=== PATIENT | female | born 1945 | race Caucasian/White ===

== ENCOUNTER → 2018-07-07 13:44 | Outpatient (CLI) | payer MEDICARE, SELFPAY ==
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
== END ==
PROVIDERS: Family Provider Family Medicine; PCP Family Medicine; Referring Provider Family Medicine; Visit Provider Family Medicine
DX: M79.641 Pain in right hand (principal)
CPT/HCPCS: 73130

== ENCOUNTER 2018-09-29 08:30 | Outpatient (RCR) | payer MEDICARE, SELFPAY ==
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
--- NOTE | 2018-09-29 08:58 | OTREVAL_ITS ---
August Mccray MD, It has been my pleasure to treat MARTA DEAN over the last 7 visits for Right hand pain. Please see the progress note below for an update on the occupational therapy plan of care! Subjective: pt states she has no improvement- pt indicates pain is more with doing dishes/ peeling fruits etc around the CMC region to right IF- Objective/Function: right girp 45#. left human services care specialist 40#. right lateral pinch 11#. left lateral pinch 12#. right tripod pinch 10#. left pinch tripod 10#. right wrist 70/60. left wrist 75/40- pt reports no improvement- but pt demo return of her right human services care specialist strength and a increase in tripod pinch- pt states she contines to have pain- pt demo with CMC arthritis- pain could be radiating from this area-rec'd pt return to for further evaluation. Plan Plan: return for further evaluation due to pts report of no change in her pain or ability Goals - Goals Goal:: PT will demo an increase in human services care specialist strength by 20# to increase independent with basic occupations of daily living to return pt to PLOF by D/C. Pt will demo an increase in lateral and tripod pinch by 2# to increase pts independent with opening baggies, containers at PLOF by D/C. Goal:: Pt will report pain no greater than 1/10 with use of affected hand with BADLs and IADLs by d/c. Goal:: Pt will demo understanding of work/lifting and carry ergonomics, joint protection to decrease stress on tendons to increase pts independent with ADLs, IADLS and work tasks by d/c. Goal:: Pt will report ind. With BADLS and IADLs with no compensation or pain by dc Anticipated Interventions Anticipated Interventions: Strengthening, Triggerpoint Release, Modalities, Joint Protection/Energy Conservation, Ergonomic Education Please do not hesitate to contact me at [phone] by phone or if you have questions or concerns regarding this new plan of care! Sincerely, Venecia Hackett, OTR/L, CHT
--- NOTE | 2018-10-10 08:55 | HP.OT.NRP ---
HP - Discharge Summary - Patient Information MARTA DEAN was seen in my office for initial evaluation on 09/08/18. The following Plan of Care was established for this patient: Initial Frequency: 2x /Week Initial Duration: 4 Weeks Plan: return for further evaluation due to pts report of no change in her pain or ability - Anticipated Interventions Anticipated Interventions: Strengthening, Triggerpoint Release, Modalities, Joint Protection/Energy Conservation, Ergonomic Education This patient was last seen in our office 09/29/18. Pertinent comments regarding their Occupational therapy will appear below: pt was seen for 7 visits for right hand pain. Tharapy utilized modalities, ed.on joint protection and ad. eq. pt cont. to have diffuse pain around right CMC. therapist advised pt to return to for possible injection. pt called and states injection did give some relief and wanted to cancel all apts. pt d/c per her request. At this point I will be discontinuing this patient from occupational therapy. I would be happy to see this patient again in the future if found appropriate by the physician. Thank you! Venecia Hackett, OTR/L, CHT
--- NOTE | 2018-10-21 10:11 | HP.OT.NRP ---
HP - Discharge Summary - Patient Information MARTA DEAN was seen in my office for initial evaluation on 09/08/18. The following Plan of Care was established for this patient: Plan: return for further evaluation due to pts report of no change in her pain or ability - Anticipated Interventions Anticipated Interventions: Strengthening, Triggerpoint Release, Modalities, Joint Protection/Energy Conservation, Ergonomic Education This patient was last seen in our office 09/29/18. Pertinent comments regarding their Occupational therapy will appear below: pt was seen for 7 visits for right hand pain. Tharapy utilized modalities, ed.on joint protection and ad. eq. pt cont. to have diffuse pain around right CMC. therapist advised pt to return to for possible injection. pt was told by to give injection a couple weeks to see if it helped. Due to lack of improvement by skilled therapy services pt d/c at this time. pt to return to if she continues to have difficulty for further eval. Pt agree to POC. At this point I will be discontinuing this patient from occupational therapy. I would be happy to see this patient again in the future if found appropriate by the physician. Thank you! Venecia Hackett, OTR/L, CHT
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
--- NOTE | 2018-10-25 09:34 | OTREVAL_ITS ---
August Mccray MD, It has been my pleasure to treat MARTA DEAN over the last 7 visits for Right hand pain. Please see the progress note below for an update on the occupational therapy plan of care! Subjective: pt states she has no improvement- pt indicates pain is more with doing dishes/ peeling fruits etc around the CMC region to right IF- Objective/Function: right girp 45#. left blister packing machine tender 40#. right lateral pinch 11#. left lateral pinch 12#. right tripod pinch 10#. left pinch tripod 10#. right wrist 70/60. left wrist 75/40- pt reports no improvement- but pt demo improvement of her right blister packing machine tender tripod pinch strength. pt states she contines to have pain around the CMC hand region -therapist has not been able to decrease pts pain with skilled therapy services at this time. Rec'd pt return to for further evaluation. Plan Plan: return for further evaluation due to pts report of no change in her pain or ability Goals - Goals Goal:: PT will demo an increase in blister packing machine tender strength by 20# to increase independent with basic occupations of daily living to return pt to OF by D/C. Pt will demo an increase in lateral and tripod pinch by 2# to increase pts independent with opening baggies, containers at PLOF by D/C. Goal:: Pt will report pain no greater than 1/10 with use of affected hand with BADLs and IADLs by d/c. Goal:: Pt will demo understanding of work/lifting and carry ergonomics, joint protection to decrease stress on tendons to increase pts independent with ADLs, IADLS and work tasks by d/c. Goal:: Pt will report ind. With BADLS and IADLs with no compensation or pain by dc Anticipated Interventions Anticipated Interventions: Strengthening, Triggerpoint Release, Modalities, J oint Protection/Energy Conservation, Ergonomic Education Please do not hesitate to contact me at [phone] by phone or if you have questions or concerns regarding this new plan of care! Sincerely, Venecia Hackett, OTR/L, CHT
== END 2018-09-29 19:00 | disposition home or self-care (01) ==
LOC: OT 08:30
PROVIDERS: Family Provider Family Medicine; PCP Family Medicine; Referring Provider Family Medicine; Visit Provider Family Medicine
DX: M79.641 Pain in right hand (principal)
CPT/HCPCS: 97035; 97110; 97140; 97166; 97168; 97760

== ENCOUNTER 2018-12-10 21:06 | Emergency (ER) | payer MEDICARE, SELFPAY ==
[2018-12-10 21:08] VITALS: BP 139/84; PULSE 101; RESP 18; TEMP 36.2; O2SAT 95; BMI 26.9
[2018-12-10 21:17] VITALS: BP 151/79; PULSE 90; RESP 16; O2SAT 94; O2SAT 97
--- NOTE | 2018-12-10 21:21 | EKG12_ITS ---
Test Reason : SOB Blood Pressure : / mmHG Vent. Rate : 080 BPM Atrial Rate : 080 BPM P-R Int : 166 ms QRS Dur : 074 ms QT Int : 378 ms P-R-T Axes : 050 -30 004 degrees QTc Int : 435 ms Normal sinus rhythm Left axis deviation Abnormal ECG Confirmed by HUYEN HUFF, MINA ([id number]), scientific editor ANTHONY ALVARADO ([id number] on 12/14/2018 9:00:44 AM Referred By: LAURA Confirmed By:MINA MATSON MD
--- NOTE | 2018-12-10 21:21 | RAD_ITS ---
STUDY: X-RAY CHEST REASON FOR EXAM: Female, 73 years old. Shortness of breath. TECHNIQUE: Single frontal view of the chest. COMPARISON: None. FINDINGS: The lungs are clear and expanded. There is no demonstrated pleural abnormality. Normal size heart. Normal mediastinum and florencia. Normal visualized pulmonary arteries. There is atherosclerotic calcification of the aortic arch with tortuosity. Normal visualized thoracic spine. Normal visualized ribs, clavicles, and shoulders. There is no demonstrated abnormality of the visualized soft tissue structures of the upper abdomen. RAD/Chest 1 View (Portable) IMPRESSION: No acute cardiopulmonary process. Electronically Signed: Leela Hernandez MD at 21:40 EDT Tel , Service support ,
[2018-12-10] MEDS: Ipratropium/Albuterol Sulfate 3 ML AMPUL.NEB INHALATION (21:32)
[2018-12-10 21:34] VITALS: PULSE 81; RESP 16
--- NOTE | 2018-12-10 21:47 | ED.DCSUM_ITS ---
- ER Visit Summary Date of Service: 12/10/18 Chief Complaint: [] Harsh cough wheezing for about a week History of Present Illness: The patient is a 73 F [] has had the symptoms for about a week of runny nose harsh cough postnasal drainage she has had increasing cough and wheezing today, she is been on Augmentin by her outpatient providers, for about 6 days has 4 more days to go she has no chest pain abdominal pain she has had no leg edema she has no history of CO PE or DVT today the harshness of the coughing and the wheezing intensified and she was brought in she is feeling better now Physical Examination: [] Vital signs are within normal range her pulse ox is 96% on room air she is afebrile blood pressure is 130/80 range General, no distress resting comfortably HEENT is generally unremarkable he does have rhinorrhea, he is complaining of a sense of constant postnasal drainage The neck is supple no adenopathy Cardiovascular, regular rate and rhythm Lungs, clear bilateral very minimal scattered wheezing Abdomen, soft nontender Extremities, no clubbing cyanosis or edema Neurologic, awake alert answering questions appropriately moving all 4 extremities Test Results: [] Emergency Department Course and Treatment: [] Major complaints the fact has been on antibiotics continues to have harsh coughing wheezing screening labs aerosols Afrin and will reevaluate asked x-ray Patient's lab studies are all generally unremarkable see those reports, chest x- ray is unremarkable she is been treated she is feeling better she was given 1 dose of Decadron orally, she will continue her antibiotics she will be given Proventil to use at home follow with her family doctors next few days return for change in symptoms she is comfortable with this plan Treatment Plan: [] Disposition: [] Home stable Impression: [] URI with harsh cough This note was generated with [employer] software. It may contain incorrect words, spelling, and punctuation that were not noted in review of the chart prior to signing ED Disposition - Plan for ED Patient: Referrals: August Mccray MD [Primary Care Provider] -
[2018-12-10 22:00] LABS: Absolute Lymphocyte Count 1.97 X10^3/ul (0.83-4.51); Absolute Neutrophil Count 2.9 X10^3/uL (2.0-7.7); Basophil# 0.03 X10^3/uL; Basophil% 0.5 % (0-1); Eosinophil# 0.29 X10^3/uL; Hematocrit 38.1 % (37-47); Hemoglobin 12.3 g/dl (12.0-15.0); Lymphocyte # 1.97 X10^3/ul (4.0); Lymphocyte % 34.2 % (19-41); Mean Corp Hgb Conc 32.3 g/gl (32-36); Mean Corpuscular Hgb 29.6 pg (27.0-32.0); Mean Corpuscular Volume 91.8 fL (81-99); Mean Platelet Vol. 9.9 fl (6.2-12.0); Monocyte# 0.52 X10^3/uL; Neutrophil # 2.94 X10^3/uL (2.7-7.7); Neutrophil % 51.1 % (47-70); POSITIVE COUNT NO; POSITIVE DIFFERENTIAL NO; POSITIVE MORPHOLOGY NO; Platelet Count 191 K/mm3 (150-450); RBC Distribution Width CV 13.1 % (11.6-14.6); RBC Distribution Width SD 43.8 fl (35.1-43.9); Red Blood Count 4.15 M/mm3 (4.2-5.4); White Blood Count 5.8 K/mm3 (4.4-11.0)
[2018-12-10 22:13] LABS: Anion Gap 4 (5-15); BUN 18 mg/dL (7-18); BUN/Creat Ratio 22.3 RATIO (10-20); Calcium,Total 8.5 mg/dL (8.5-10.1); Chloride 110 mmol/L (98-107); Creatinine, Serum 0.81 mg/dL (0.55-1.02); EST Glomerular Filtration Rate 74 mL/min (>60); Est Glom Filt Rate - Afr Amer 90 mL/min (>60); Estimated Creatinine Clearance 55.01 ml/min; Glucose 118 mg/dL (74-106); Potassium 3.7 mmol/L (3.5-5.1); Sodium Level 143 mmol/L (136-145)
[2018-12-10 22:27] LABS: BNP,B-Type NATRIURETIC PEPTIDE 13.8 pg/mL (0-100)
--- NOTE | 2018-12-10 22:38 | ED.DEP ---
ED Disposition - Plan for ED Patient: Instructions: ED Bronchitis Asthmatic, ED Reactive Airway Disease Prescriptions: Albuterol Inhaler [Ventolin Hfa] 1 - 2 puff INHALATION Q4H PRN PRN #1 inhaler PRN Reason: Wheezing Referrals: August Mccray MD [Primary Care Provider] -
--- NOTE | 2018-12-10 22:54 | ED.DEP ---
ED Disposition - Plan for ED Patient: Instructions: ED Reactive Airway Disease, ED Bronchitis Asthmatic Prescriptions: Albuterol Inhaler [Ventolin Hfa] 1 - 2 puff INHALATION Q4H PRN PRN #1 inhaler PRN Reason: Wheezing Referrals: August Mccray MD [Primary Care Provider] -
[2018-12-10 23:14] VITALS: BP 126/78; PULSE 85; RESP 16; O2SAT 93
[2018-12-10 23:15] VITALS: BP 126/78; PULSE 85; RESP 16; O2SAT 94
[2018-12-10] MEDS: Oxymetazoline 0.05% 1 SPRAY SPRAY.BTL 2 SPRAY NASAL (23:19)
== END 2018-12-10 23:21 | disposition home or self-care (01) ==
PROVIDERS: Emergency Provider Emergency Medicine; Family Provider Family Medicine; PCP Family Medicine
DX: J06.9 Acute upper respiratory infection, unspecified (principal); R06.2 Wheezing; Z79.899 Other long term (current) drug therapy
CPT/HCPCS: 71045; 80048; 83880; 84484; 85025; 93005; 94640; 99284; A4216

== ENCOUNTER → 2019-02-06 13:52 | Outpatient (CLI) | payer MEDICARE, SELFPAY ==
--- NOTE | 2019-02-06 13:55 | RAD_ITS ---
STUDY: X-RAY - ABDOMEN/PELVIS REASON FOR EXAM: Female, 73 years old. Right-sided abdominal pain extending to the right groin. TECHNIQUE: AP supine and upright views of the abdomen and pelvis. COMPARISON: None. FINDINGS: Elevation of the right hemidiaphragm. The lung bases are clear. There is a moderate amount of colonic fecal material. There is no demonstrated free abdominal air. There is a 5.5 mm rounded calcification at the level of the transverse processes of the L5 vertebra on the right side. A mid right ureteral calculus should be ruled out. There are calcified phleboliths in the pelvis. Normal visualized osseous structures. RAD/Abd Inc Decub and/or Erect IMPRESSION: Findings suggestive of a 5.5 mm calculus in the midportion of the right ureter overlying the transverse processes of the L5 vertebrae. Electronically Signed: Rickie Barksdale, at 14:34 EDT , Service support ,
== END ==
PROVIDERS: Family Provider Family Medicine; PCP Family Medicine; Referring Provider Nurse Practitioner Adult Health; Visit Provider Nurse Practitioner Adult Health
DX: R10.9 Unspecified abdominal pain (principal)
CPT/HCPCS: 74019

== ENCOUNTER → 2019-07-14 08:13 | Outpatient (CLI) | payer MEDICARE, SELFPAY ==
[2019-07-14 10:29] LABS: Vitamin D,25 Hydroxy 59.2 ng/mL (29.95-100.01)
[2019-07-14 10:42] LABS: ALB/GLOB Ratio 1.1 RATIO (0.9-2.4); AST(SGOT) 13 U/L (15-37); Alanine Aminotransfer ALT/SGPT 22 U/L (13-56); Albumin, Serum 3.5 g/dL (3.2-5.0); Alkaline Phosphatase 70 U/L (45-117); Anion Gap 5 (5-15); BUN 14 mg/dL (7-18); BUN/Creat Ratio 20.6 RATIO (10-20); Calcium,Total 8.8 mg/dL (8.5-10.1); Chloride 110 mmol/L (98-107); Cholesterol 148 mg/dL (200); Creatinine, Serum 0.68 mg/dL (0.55-1.02); EST Glomerular Filtration Rate 91 mL/min (>60); Est Glom Filt Rate - Afr Amer 110 mL/min (>60); Globulin 3.2 g/dL (2.2-4.2); Glucose 94 mg/dL (74-106); High Density Lipoprotein 47 mg/dL; Potassium 3.7 mmol/L (3.5-5.1); Protein, Total 6.7 g/dL (6.4-8.2); Sodium Level 142 mmol/L (136-145); Triglycerides 106 mg/dL; Very Low Density Lipoprotein 21 mg/dL (5-40)
== END ==
PROVIDERS: Family Provider Family Medicine; PCP Family Medicine; Referring Provider Family Medicine; Visit Provider Family Medicine
DX: Z00.00 Encounter for general adult medical examination without abnormal findings (principal); I10 Essential (primary) hypertension; E78.5 Hyperlipidemia, unspecified; M81.0 Age-related osteoporosis without current pathological fracture
CPT/HCPCS: 36415; 80053; 80061; 82306; 84443

== ENCOUNTER → 2019-08-08 08:22 | Outpatient (CLI) | payer MEDICARE, SELFPAY | PROVIDERS: Family Provider Family Medicine; PCP Family Medicine; Visit Provider Nurse Practitioner Adult Health | DX: R19.7 Diarrhea, unspecified (principal) | CPT/HCPCS: 87493 ==

== ENCOUNTER → 2021-01-13 09:13 | Outpatient (CLI) | payer MEDICARE, SELFPAY ==
[2021-01-13 11:14] LABS: ALB/GLOB Ratio 1.1 RATIO (0.9-2.4); AST(SGOT) 13 U/L (15-37); Alanine Aminotransfer ALT/SGPT 21 U/L (13-56); Albumin, Serum 3.6 g/dL (3.2-5.0); Alkaline Phosphatase 82 U/L (45-117); Anion Gap 4 (5-15); BUN 12 mg/dL (7-18); BUN/Creat Ratio 17.8 RATIO (10-20); Calcium,Total 9.6 mg/dL (8.5-10.1); Chloride 107 mmol/L (98-107); Cholesterol 185 mg/dL (200); Creatinine, Serum 0.67 mg/dL (0.55-1.02); EST Glomerular Filtration Rate 91 mL/min (>60); Est Glom Filt Rate - Afr Amer 110 mL/min (>60); Globulin 3.4 g/dL (2.2-4.2); Glucose 91 mg/dL (74-106); High Density Lipoprotein 55 mg/dL; Potassium 3.8 mmol/L (3.5-5.1); Sodium Level 140 mmol/L (136-145); Triglycerides 165 mg/dL; Very Low Density Lipoprotein 33 mg/dL (5-40)
== END ==
PROVIDERS: PCP Family Medicine; Visit Provider Family Medicine
DX: E78.5 Hyperlipidemia, unspecified (principal); E04.2 Nontoxic multinodular goiter
CPT/HCPCS: 36415; 80053; 80061; 84443

== ENCOUNTER → 2021-01-28 12:19 | Outpatient (CLI) | payer MEDICARE, SELFPAY ==
--- NOTE | 2021-01-28 12:22 | US_ITS ---
STUDY: THYROID ULTRASOUND REASON FOR EXAM: Female, 75 years old. GOITER TECHNIQUE: Ultrasound evaluation of the thyroid was performed with real-time and static reed-scale imaging. COMPARISON: Comparison is made with prior study dated 07/12/2017. FINDINGS: RIGHT LOBE: The right lobe of the thyroid gland measures 4 cm x 1.5 cm x 0.9 cm. There is a homogeneous echotexture. Once again, scattered hypoechoic nodules are seen throughout the mid pole of the right lobe. The largest measures 8 mm x 8 mm x 5 mm. This is essentially unchanged. LEFT LOBE: The left lobe of the thyroid gland measures 4.3 cm x 1.3 cm x 1.4 cm. There is a homogeneous echotexture. 2 subcentimeter hypoechoic nodules are seen. The largest measures 8 mm x 6 mm x 4 mm. This is in the lower pole. This is essentially unchanged. ISTHMUS: The isthmus measures 3 mm. The regional lymph nodes are normal. US/Thyroid IMPRESSION: Stable examination. Electronically Signed: Rickie Barksdale MD at 8:45 EDT , Service support ,
== END ==
PROVIDERS: PCP Family Medicine; Referring Provider Family Medicine; Visit Provider Family Medicine
DX: E04.2 Nontoxic multinodular goiter (principal)
CPT/HCPCS: 76536

== ENCOUNTER → 2022-01-13 | Outpatient (CLI) | payer MEDICARE, SELFPAY ==
[2022-01-13 10:28] LABS: Anion Gap 6 (5-15); BUN 16 mg/dL (7-18); BUN/Creat Ratio 24.5 RATIO (10-20); Calcium,Total 9.1 mg/dL (8.5-10.1); Chloride 108 mmol/L (98-107); Cholesterol 145 mg/dL (200); Creatinine, Serum 0.65 mg/dL (0.55-1.02); EST Glomerular Filtration Rate 94 mL/min (>60); Est Glom Filt Rate - Afr Amer 114 mL/min (>60); Glucose 102 mg/dL (74-106); High Density Lipoprotein 43 mg/dL; Potassium 3.8 mmol/L (3.5-5.1); Sodium Level 142 mmol/L (136-145); Triglycerides 148 mg/dL; Very Low Density Lipoprotein 30 mg/dL (5-40)
== END | disposition home or self-care (01) ==
LOC: MTLAB 07:10
PROVIDERS: PCP Family Medicine; Referring Provider Family Medicine; Visit Provider Family Medicine
DX: I10 Essential (primary) hypertension (principal)
CPT/HCPCS: 36415; 80048; 80061

== ENCOUNTER → 2022-07-03 | Outpatient (CLI) | payer MEDICARE, SELFPAY ==
--- NOTE | 2022-07-03 10:10 | RAD_ITS ---
STUDY: X-RAY - PELVIS AND BILATERAL HIPS REASON FOR EXAM: Female, 76 years old. HIP PAIN TECHNIQUE: AP view of the pelvis.? 2 views of the right hip, and 2 views of the left hip were obtained. COMPARISON: None. FINDINGS: There is a non-specific bowel gas pattern. Normal visualized soft tissue structures. There is diffuse demineralization of the osseous structures. There is narrowing with cortical sclerosis and osteophyte formation of the sacroiliac joint consistent with degenerative osteoarthritic changes. Normal bilateral superior and inferior pubic rami. Normal pubic symphysis. Normal bilateral ischial tuberosities. Normal visualized right femoral head. Normal right acetabulum. There is mild articular joint space narrowing of the right hip. Normal visualized left femoral head. Normal left acetabulum. There is mild articular joint space narrowing of the left hip. RAD/Hips B/L min 2 views w/ Pelvis IMPRESSION: Age consistent hip and SI joint arthrosis, no demonstrated fracture or suspicious osseous lesion Electronically Signed: Tim Ruiz MD at 12:38 EDT ,
[2022-07-03 12:54] LABS: Anion Gap 8 (5-15); BUN 14 mg/dL (7-18); BUN/Creat Ratio 19.3 RATIO (10-20); Chloride 104 mmol/L (98-107); Cholesterol 179 mg/dL (200); Creatinine, Serum 0.73 mg/dL (0.55-1.02); EST Glomerular Filtration Rate 83 mL/min (>60); Est Glom Filt Rate - Afr Amer 101 mL/min (>60); Glucose 106 mg/dL (74-106); High Density Lipoprotein 47 mg/dL; Potassium 3.9 mmol/L (3.5-5.1); Sodium Level 140 mmol/L (136-145); Triglycerides 173 mg/dL; Very Low Density Lipoprotein 35 mg/dL (5-40)
== END | disposition home or self-care (01) ==
PROVIDERS: PCP Family Medicine; Referring Provider Family Medicine; Visit Provider Family Medicine
DX: M25.551 Pain in right hip (principal); M25.552 Pain in left hip; I10 Essential (primary) hypertension
CPT/HCPCS: 36415; 73521; 80048; 80061

== ENCOUNTER 2022-08-28 20:00 | Emergency (ER) | payer MEDICARE, SELFPAY ==
[2022-08-28 20:02] VITALS: BP 130/89; PULSE 114; RESP 18; TEMP 36.7; O2SAT 95; BMI 25.7
[2022-08-28 21:06] LABS: Absolute Lymphocyte Count 0.45 X10^3/uL (0.83-4.51); Absolute Neutrophil Count 6.5 X10^3/uL (2.0-7.7); Basophil# 0.04 X10^3/uL; Basophil% 0.5 % (0-1); Eosinophil# 0.27 X10^3/uL; Eosinophils% 3.3 % (0-5); Hematocrit 50.8 % (37-47); Hemoglobin 17.1 g/dL (12.0-15.0); Lymphocyte # 0.45 X10^3/ul (0.83-4.51); Lymphocyte % 5.6 % (19-41); Mean Corp Hgb Conc 33.7 g/dL (32-36); Mean Corpuscular Hgb 30.6 pg (27.0-32.0); Mean Corpuscular Volume 90.9 fL (81-99); Mean Platelet Vol. 10.2 fl (6.2-12.0); Monocyte% 9.9 % (0-10); NRBC Flagged by Analyzer 0 % (0-5); Neutrophil # 6.49 X10^3/uL (2.7-7.7); Neutrophil % 80.6 % (47-70); POSITIVE DIFFERENTIAL YES; Platelet Count 253 K/mm3 (150-450); RBC Distribution Width CV 12.9 % (11.6-14.6); RBC Distribution Width SD 43.1 fl (35.1-43.9); Red Blood Count 5.59 M/mm3 (4.2-5.4); White Blood Count 8.1 K/mm3 (4.4-11.0)
[2022-08-28 21:08] LABS: Differential Indicated SCAN CRITERIA MET
[2022-08-28 21:25] LABS: Anion Gap 10 (5-15); BUN 55 mg/dL (7-18); BUN/Creat Ratio 32.2 RATIO (10-20); Calcium,Total 9.6 mg/dL (8.5-10.1); Chloride 102 mmol/L (98-107); Creatinine, Serum 1.71 mg/dL (0.55-1.02); EST Glomerular Filtration Rate 31 mL/min (>60); Est Glom Filt Rate - Afr Amer 37 mL/min (>60); Estimated Creatinine Clearance 24.92 ml/min; Glucose 136 mg/dL (74-106); Potassium 3.7 mmol/L (3.5-5.1); Sodium Level 135 mmol/L (136-145)
[2022-08-28 21:35] LABS: Differential Comment SCANNED
[2022-08-29 00:38] LABS: Magnesium 2.9 mg/dL (1.6-2.6)
[2022-08-29] MEDS: proCHLORPERazine 10 MG/2 ML Vial 5 MG IV (00:39)
[2022-08-29] MEDS: Diphenoxylate/Atrop 1 Tablet PO (00:39)
[2022-08-29] MEDS: 0.9% Normal Saline 1,000 ML 500 ML IV (00:50)
[2022-08-29 01:06] LABS: Color, Urine Yellow (Yellow); Glucose, Dipstick Normal (Normal); Ketone-Dipstick 50 mg/dl (Negative); Leukocyte Esterase-Dipstick 25 /ul (Negative); Nitrite-Dipstick Negative (Negative); Occult Blood-Urine 10 /ul (Negative); Protein-Dipstick 30 mg/dl (Negative); Specific Gravity, Urine 1.025 (1.002-1.030); Urine Clarity Sl. Cloudy (Clear); Urine Urobilinogen Normal (Normal)
[2022-08-29 01:12] LABS: Urine Bilirubin Dipstick 1 mg/dL (Negative)
[2022-08-29 01:17] LABS: Bacteria 2+ /hpf (None Seen); Hyaline Cast 25-50 SEEN /lpf (0-5); Red Blood Cells-Urine 0-5 SEEN /hpf (0-5); Squamous Epithelial Cells - UA 0-5 SEEN /hpf (5-10); White Blood Cells 5-10 SEEN /hpf (0-5)
[2022-08-29 01:18] LABS: Fine Granular Cast- Urine 0-5 SEEN /lpf (0-5); Mucous, Urine 1+ /hpf (<or=2+)
--- NOTE | 2022-08-29 02:26 | EDS_ITS ---
HPI History of Present Illness Chief Complaint: Nausea/Vomiting/Diarrhea Narrative Narrative: Patient is a 76-year-old female with history of hypertension hyperlipidemia and TIA. Patient and state that family in [place] was recently sick with the stomach bug. Patient and state that over the last 2 to 3 days she has had multiple episodes of vomiting and diarrhea and has been unable to keep food or fluid down. They have concerned that she is now becoming dehydrated secondary to the prolonged nature of her symptoms and therefore bring her in for evaluation [facility] Home Medications Aggrenox PO BID 12/10/18 [History Last Taken Unknown] Amoxicillin/Potassium Clav [Amox-Clav 875-125 Mg Tablet] 1 tab PO BID 12/10/18 [History Last Taken Unknown] Vitamin D DAILY 12/10/18 [History Last Taken Unknown] albuterol sulfate 90 mcg/actuation aerosol inhaler 1 - 2 puff inhalation Q4H PRN PRN Wheezing ##1 12/10/18 [Rx Last Taken Unknown] atorvastatin 10 mg tablet 10 mg PO QHS 12/10/18 [History Last Taken Unknown] folic acid 1 mg tablet 1 mg PO DAILY 12/10/18 [History Last Taken Unknown] hydrochlorothiazide 12.5 mg capsule 12.5 mg PO DAILY 12/10/18 [History Last Taken Unknown] metoprolol tartrate 25 mg tablet 12.5 mg PO BID 12/10/18 [History Last Taken Unknown] multivit with vqxzbdoc-ijzg-NJ-lutein 8 mg iron-400 mcg-300 mcg tablet (Centrum Silver Women) 1 ea PO DAILY 12/10/18 [History Last Taken Unknown] diphenoxylate-atropine 2.5 mg-0.025 mg tablet (Lomotil) 1 tab PO 4X/DAY PRN PRN diarrhea 7 days #28 tabs 08/29/22 [Rx Last Taken Unknown] Allergy/AdvReac Type Severity Reaction Status Date / Time lisinopril AdvReac Other Verified 12/10/18 21:26 risedronate sodium AdvReac Unknown Verified 12/10/18 21:26 [From Actonel] Social History Smoking Status: Never smoker ROS ROS ED Constitutional Constitutional ED: Denies chills or fever(s) ENT ENT ED: Denies sore throat Cardiovascular Cardiovascular: Denies chest pain Respiratory/Chest Respiratory/Chest: Denies cough or dyspnea Gastrointestinal Gastrointestinal: Reports diarrhea, nausea and vomiting; Denies abdominal pain Genitourinary Genitourinary ED: Denies dysuria Musculoskeletal Musculoskeletal: Reports myalgias Integumentary Denies rash Neurologic Neurologic: Reports weakness; Denies headache(s) Hematologic/Lymphatic Hematologic/Lymphatic: Denies easy bleeding or easy bruising EXAM Physical Exam Const Vital Signs: 08/28/22 20:02 08/29/22 02:35 Temperature 98.1 F Temperature Source Temporal Pulse Rate 114 H 65 Respiratory Rate 18 19 H Blood Pressure 130/89 H 118/71 Blood Pressure Mean 102 Pulse Ox 95 96 Oxygen Delivery Method Room Air Positive well nourished and well developed General Appearance ED: well developed HEENT Reports dry mucous membranes HEENT Narrative: Mucous membranes are dry and tacky without airway edema or compromise Mouth ED: Yes dry mucous membranes Mouth: dry mucous membranes Eyes PERRL and EOMs intact bilaterally General Eye ED: Negative for scleral icterus Neck supple Resp normal respiratory effort and clear to auscultation bilaterally Cardio regular rhythm Rate: tachycardic GI non-tender and non-distended GI Narrative: Abdomen is soft nontender nondistended with hyperactive bowel sounds no voluntary guarding or rigidity no pulsatile mass Auscultation: hyperactive bowel sounds Palpation: soft Extremity normal to inspection Neuro oriented x3 and CN's II-XII intact bilaterally Sensorium / Orientation: alert Psych mental status grossly normal Skin no rashes or lesions noted Skin Narrative: Skin turgor is increased General Skin Exam: Negative for jaundice MDM MDM MDM Narrative Medical decision making narrative: Patient presented to the ER with history and physical exam findings consistent with dehydration and viral gastroenteritis. Based on the prolonged nature of her symptoms there was concern for electrolyte abnormalities so basic blood work was obtained. Patient's kidney function is elevated with creatinine of 1.71 when chart review reveals her baseline to be approximately 0.75. Secondary to this she was given 2 L of fluid as well as IV Compazine and oral Lomotil. Patient had no bouts of vomiting while in the ER and she only had 1 bout of loose stool which she states was small in nature. Her vital signs normalized as well with hydration. Therefore at this time as patient is now tolerating oral secretions and no longer having vomiting or intractable diarrhea and she has been hydrated I do not feel we have to keep her in the hospital. Patient will continue oral hydration but if symptoms return or worsen she agrees to return to the ER for repeat evaluation. The plan of care was discussed with patient and and both are agreeable to it Lab Data Attestation: I reviewed the patient's lab results. Labs: Laboratory Results - last 24 hr 08/28/22 08/28/22 08/28/22 20:58 20:58 20:58 WBC 8.1 RBC 5.59 H Hgb 17.1 H Hct 50.8 H MCV 90.9 MCH 30.6 MCHC 33.7 RDW Std Deviation 43.1 RDW Coeff of Opal 12.9 Plt Count 253 MPV 10.2 Immature Gran % (Auto) 0.100 Neut % (Auto) 80.6 H Lymph % (Auto) 5.6 L [place] % (Auto) 9.9 Eos % (Auto) 3.3 Baso % (Auto) 0.5 Absolute Neuts (auto) 6.5 Absolute Lymphs (auto) 0.45 L Nucleated RBC % 0 Differential Comment SCANNED Sodium 135 L Potassium 3.7 Chloride 102 Carbon Dioxide 23.0 Anion Gap 10 BUN 55 H Creatinine 1.71 H Estim Creat Clear Calc 24.92 Est GFR (MDRD) Af Amer 37 L Est GFR (MDRD) Non-Af 31 L BUN/Creatinine Ratio 32.2 H Glucose 136 H Calcium 9.6 Magnesium 2.9 H Urine Color Urine Clarity Urine pH Ur Specific [place] Urine Protein Urine Glucose (UA) Urine Ketones Urine Occult Blood Urine Nitrite Urine Bilirubin Urine Urobilinogen Ur Leukocyte Esterase Urine RBC Urine WBC Ur Squamous Epith Cells Urine Bacteria Hyaline Casts Fine Granular Casts Urine Mucus 08/29/22 00:56 WBC RBC Hgb Hct MCV MCH MCHC RDW Std Deviation RDW Coeff of Opal Plt Count MPV Immature Gran % (Auto) Neut % (Auto) Lymph % (Auto) [place] % (Auto) Eos % (Auto) Baso % (Auto) Absolute Neuts (auto) Absolute Lymphs (auto) Nucleated RBC % Differential Comment Sodium Potassium Chloride Carbon Dioxide Anion Gap BUN Creatinine Estim Creat Clear Calc Est GFR (MDRD) Af Amer Est GFR (MDRD) Non-Af BUN/Creatinine Ratio Glucose Calcium Magnesium Urine Color Yellow Urine Clarity Sl. Cloudy Urine pH 5.0 Ur Specific [place] 1.025 Urine Protein 30 H Urine Glucose (UA) Normal Urine Ketones 50 H Urine Occult Blood 10 H Urine Nitrite Negative Urine Bilirubin 1 H Urine Urobilinogen Normal Ur Leukocyte Esterase 25 H Urine RBC 0-5 SEEN Urine WBC 5-10 SEEN Ur Squamous Epith Cells 0-5 SEEN Urine Bacteria 2+ Hyaline Casts 25-50 SEEN Fine Granular Casts 0-5 SEEN Urine Mucus 1+ Discharge Plan Triage Chief Complaint: Nausea/Vomiting/Diarrhea ED Provider: Celso Valencia Dx/Rx/DC Orders Clinical Impression: Nausea vomiting and diarrhea, Dehydration Instructions: Dehydration, ED Vomiting and Diarrhea ... Prescriptions: New diphenoxylate-atropine [Lomotil] 2.5-0.025 mg tablet 1 tab PO 4X/DAY PRN PRN (Reason: diarrhea) 7 Days Qty: 28 0RF No Action albuterol sulfate 1 INHALER inhaler 1 - 2 puff Inhalation Q4H PRN PRN (Reason: Wheezing) Qty: 1 0RF Aggrenox PO BID Amoxicillin/Potassium Clav [Amox-Clav 875-125 Mg Tablet] 1 EACH tablet 1 tab PO BID Label Comments: take 1 tablet by mouth twice a day for 10 days atorvastatin 10 MG tablet 10 mg PO QHS hydrochlorothiazide 12.5 MG capsule 12.5 mg PO DAILY Label Comments: TAKE ONE CAPSULE BY MOUTH EVERY DAY folic acid 1 MG tablet 1 mg PO DAILY Label Comments: TAKE ONE TABLET BY MOUTH DAILY metoprolol tartrate 25 MG tablet 12.5 mg PO BID Vitamin D DAILY yahjogja-mfe-mmak-FA-lutein [Centrum Silver Women] 1 EACH tablet 1 ea PO DAILY Primary Care Provider: August Mccray Referrals: August Mccray MD [Primary Care Provider] - Activity Restrictions/Additional Instructions: Please keep yourself well-hydrated continue with Zofran to control nausea and vomiting and use the Lomotil instead of the Imodium for better diarrhea control. Please talk to your family doctor about repeating blood work in roughly 1 week to ensure your kidney function is improving and if he have any further concerns return to the ER for repeat evaluation Disposition Disposition: Home, Self Care Discharge Date/Time: 08/29/22 02:43
[2022-08-29 02:35] VITALS: BP 118/71; PULSE 65; RESP 19; O2SAT 96
== END 2022-08-29 02:43 | disposition home or self-care (01) ==
PROVIDERS: Emergency Provider Emergency Medicine; PCP Family Medicine; Visit Provider Emergency Medicine
DX: R11.2 Nausea with vomiting, unspecified (principal); E86.0 Dehydration; R19.7 Diarrhea, unspecified; I10 Essential (primary) hypertension; E78.5 Hyperlipidemia, unspecified
CPT/HCPCS: 80048; 81001; 83735; 85025; 96361; 96374; 99284; J7030; J7050; A4216

== ENCOUNTER → 2022-09-02 | Outpatient (CLI) | payer MEDICARE, SELFPAY ==
[2022-09-02 18:58] LABS: Anion Gap 7 (5-15); BUN 20 mg/dL (7-18); BUN/Creat Ratio 24.6 RATIO (10-20); Calcium,Total 9.6 mg/dL (8.5-10.1); Chloride 102 mmol/L (98-107); Creatinine, Serum 0.81 mg/dL (0.55-1.02); EST Glomerular Filtration Rate 73 mL/min (>60); Est Glom Filt Rate - Afr Amer 88 mL/min (>60); Glucose 80 mg/dL (74-106); Potassium 3.8 mmol/L (3.5-5.1); Sodium Level 140 mmol/L (136-145)
== END | disposition home or self-care (01) ==
LOC: MFPLAB 15:36
PROVIDERS: PCP Family Medicine; Visit Provider Family Medicine
DX: N28.9 Disorder of kidney and ureter, unspecified (principal)
CPT/HCPCS: 36415; 80048

== ENCOUNTER → 2022-12-31 | Outpatient (CLI) | payer MEDICARE, SELFPAY ==
[2022-12-31 12:33] LABS: Anion Gap 6 (5-15); BUN 16 mg/dL (7-18); BUN/Creat Ratio 19.9 RATIO (10-20); Calcium,Total 9.3 mg/dL (8.5-10.1); Chloride 108 mmol/L (98-107); Cholesterol 158 mg/dL (200); EST Glomerular Filtration Rate 74 mL/min (>60); Est Glom Filt Rate - Afr Amer 89 mL/min (>60); Glucose 94 mg/dL (74-106); High Density Lipoprotein 48 mg/dL; Potassium 4.1 mmol/L (3.5-5.1); Sodium Level 142 mmol/L (136-145); Triglycerides 120 mg/dL; Very Low Density Lipoprotein 24 mg/dL (5-40)
== END | disposition home or self-care (01) ==
LOC: MFPLAB 09:41
PROVIDERS: PCP Family Medicine; Visit Provider Family Medicine
DX: I10 Essential (primary) hypertension (principal); E78.5 Hyperlipidemia, unspecified
CPT/HCPCS: 36415; 80048; 80061

== ENCOUNTER → 2023-02-25 | Outpatient (CLI) | payer MEDICARE, SELFPAY ==
--- NOTE | 2023-02-25 10:35 | RAD_ITS ---
STUDY: X-RAY - LEFT HAND REASON FOR EXAM: Female, 77 years old. PAIN, FALL WITH INJURY TECHNIQUE: 3 view(s) of the hand. COMPARISON: None. FINDINGS: Normal radiocarpal articulation. Normal distal radioulnar joint. There is diffuse demineralization of the carpal bones. Normal carpal articulations Normal carpometacarpal articulation of the thumb. Normal second through fifth carpometacarpal joints. Normal metacarpi. There is degenerative arthrosis of the metacarpophalangeal (MCP) joints. There is degenerative arthrosis of the interphalangeal joint of the thumb with articular joint space narrowing. Normal proximal and distal phalanges of the thumb. Normal metacarpophalangeal joints of the second through fifth fingers. There is diffuse articular joint space narrowing of the proximal and distal interphalangeal joints of the second through fifth fingers, but without erosive changes or periarticular soft tissue swelling. Normal phalanges of the second through fifth fingers. The soft tissue structures are unremarkable. RAD/Hand Min 3 Views IMPRESSION: No acute abnormality. No fracture or dislocation. Degenerative changes. Electronically Signed: Jesus Flores MD at 18:42 EDT ,
== END | disposition home or self-care (01) ==
LOC: MTRAD 10:32
PROVIDERS: PCP Family Medicine; Referring Provider Family Medicine; Visit Provider Family Medicine
DX: S69.92XA Unspecified injury of left wrist, hand and finger(s), initial encounter (principal); W19.XXXA Unspecified fall, initial encounter
CPT/HCPCS: 73130

== ENCOUNTER → 2023-07-02 | Outpatient (CLI) | payer MEDICARE, SELFPAY ==
[2023-07-02 10:45] LABS: ALB/GLOB Ratio 1.1 RATIO (0.9-2.4); AST(SGOT) 12 U/L (15-37); Alanine Aminotransfer ALT/SGPT 21 U/L (13-56); Albumin, Serum 3.5 g/dL (3.2-5.0); Alkaline Phosphatase 63 U/L (45-117); Anion Gap 4 (5-15); BUN 16 mg/dL (7-18); BUN/Creat Ratio 21.2 RATIO (10-20); Calcium,Total 9.1 mg/dL (8.5-10.1); Chloride 111 mmol/L (98-107); Cholesterol 154 mg/dL (200); Creatinine, Serum 0.76 mg/dL (0.55-1.02); EST Glomerular Filtration Rate 79 mL/min (>60); Est Glom Filt Rate - Afr Amer 96 mL/min (>60); Globulin 3.2 g/dL (2.2-4.2); Glucose 106 mg/dL (74-106); High Density Lipoprotein 45 mg/dL; Potassium 4.1 mmol/L (3.5-5.1); Protein, Total 6.7 g/dL (6.4-8.2); Sodium Level 143 mmol/L (136-145); Triglycerides 132 mg/dL; Very Low Density Lipoprotein 26 mg/dL (5-40)
== END | disposition home or self-care (01) ==
LOC: MFPLAB 08:45
PROVIDERS: PCP Family Medicine; Visit Provider Family Medicine
DX: E78.5 Hyperlipidemia, unspecified (principal)
CPT/HCPCS: 36415; 80053; 80061

== ENCOUNTER → 2024-01-03 | Outpatient (CLI) | payer MEDICARE, SELFPAY ==
--- NOTE | 2024-01-03 09:18 | RAD_ITS ---
INDICATION: HIP PAIN EXAMINATION/TECHNIQUE: X-RAY - XR Hips Bilateral with Pelvis when performed; Min 5 Views COMPARISON: No relevant prior comparison study available FINDINGS: PELVIC BONES: No displaced fracture, destructive or sclerotic lesions. Note that overlapping bowel shadows may however obscure fine detail. Sacroiliac joints are unremarkable. No widening of the pubic symphysis. HIPS: There is mild degenerative arthrosis of the hip joints bilaterally with mild joint space narrowing and marginal osteophyte formation. No displaced fracture. SOFT TISSUES: No soft tissue swelling or gas. RAD/Hips B/L min 2 views w/ Pelvis IMPRESSION: Mild degenerative arthrosis of the hip joints bilaterally. No evidence of displaced pelvic or hip fracture. Electronically Signed: Boyd Flores MD at 10:26 EDT ,
[2024-01-03 11:03] LABS: Anion Gap 3 (5-15); BUN 18 mg/dL (7-18); BUN/Creat Ratio 25.7 RATIO (10-20); Calcium,Total 9.3 mg/dL (8.5-10.1); Chloride 107 mmol/L (98-107); Cholesterol 133 mg/dL (200); EST Glomerular Filtration Rate 86 mL/min (>60); Est Glom Filt Rate - Afr Amer 105 mL/min (>60); Glucose 100 mg/dL (74-106); High Density Lipoprotein 41 mg/dL; Potassium 3.8 mmol/L (3.5-5.1); Sodium Level 140 mmol/L (136-145); Triglycerides 180 mg/dL; Very Low Density Lipoprotein 36 mg/dL (5-40)
== END | disposition home or self-care (01) ==
PROVIDERS: PCP Family Medicine; Referring Provider Family Medicine; Visit Provider Family Medicine
DX: I10 Essential (primary) hypertension (principal); M25.559 Pain in unspecified hip
CPT/HCPCS: 36415; 73521; 80048; 80061

== ENCOUNTER → 2024-08-08 | Outpatient (CLI) | payer MEDICARE, SELFPAY ==
[2024-08-08 10:43] LABS: PTHIN 37.4 pg/mL (18.4-80.1)
== END | disposition home or self-care (01) ==
LOC: MTLAB 08:45
PROVIDERS: PCP Family Medicine; Referring Provider Family Medicine; Visit Provider Family Medicine
DX: M81.0 Age-related osteoporosis without current pathological fracture (principal)
CPT/HCPCS: 36415; 83970

== ENCOUNTER 2024-09-18 09:02 | Observation (INO) | payer MEDICARE, SELFPAY ==
--- NOTE | 2024-08-22 09:01 | PAT.ANE_ITS ---
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 When Was Last Pacemaker Check QUESTION #4 FULL TEXT: You/Your Family Experience fever (hyperthermia) with Anesthesia Last Oral Intake Last Oral intake: Last Oral Intake NPO since Meds taken in AM with sips of water? Meds patient instructed to take am of surgery PONV PONV - electrician journeyman wireman: PONV - electrician journeyman wireman Female Yes 08/21/24 09:14 HX of Motion Sickness No 08/21/24 09:14 HX of N/V After Surgery No 08/21/24 09:14 Non-Smoker Yes 08/21/24 09:14 Duration of Surgery greater Yes 08/21/24 09:14 than 60 minutes Number of Risk Factors 3 08/21/24 09:14 PONV Score Moderate Risk 08/21/24 09:14 Height & Weight Height & Weight: Anesthesia: Height & Weight Height 5 ft 4 in 08/28/22 20:02 Respiratory Assessment Respiratory Assessment - electrician journeyman wireman: Respiratory Tract Infection Hx - electrician journeyman wireman Hx Respiratory Tract Infection No 08/21/24 09:14 STOP Sleep Apnea STOP Sleep Apnea - electrician journeyman wireman: STOP Sleep Apnea - electrician journeyman wireman Hx Hypertension Yes: CONTROLLED WITH MED 08/21/24 09:14 Hx Sleep Apnea No 08/21/24 09:14 CPAP BIPAP Do you snore loudly (louder No 08/21/24 09:14 than talking or can be heard Do you often feel tired/ No 08/21/24 09:14 fatigued/ sleepy during daytime? Has anyone observed you stop No 08/21/24 09:14 breathing during sleep? STOP Results Negative 08/21/24 09:14 QUESTION #5 FULL TEXT : Do you snore loudly (louder than talking or can be heard through closed doors)? Tobacco Use History Tobacco Use History - electrician journeyman wireman: Tobacco Use History - electrician journeyman wireman Tobacco Use Non-smoker 01/13/21 09:13 Smoking Status Never smoker 08/21/24 09:14 Hx Tobacco Use No 08/21/24 09:14 Years Smoking Packs Smoked per Day Smoking Cessation Date was within the last 15 years Hx Smoking Cessation Date Hx Smoking Cessation Counseling Hematologic Medial History Hematologic Hx - electrician journeyman wireman: Hematologic Medical Hx - cleaning porter Hx of Blood Transfusion No 08/21/24 09:14 Hx of Transfusion in last 3 No 08/21/24 09:14 Months Date of Last Transfusion (if within last 3 months) Ever experience any problems No 08/21/24 09:14 with transfusion(s)? Specify any problems Hx of Preganancy in last 3 No 08/21/24 09:14 Months Nurse Filling Out Transfusion DSCHRIBER 08/21/24 09:14 & Questions: Date: 08/21/24 08/21/24 09:14 Time: 09:16 08/21/24 09:14 Patient unable to answer at this time (ie. confused, unrespo /Reproduction History /Reproductive History - electrician journeyman wireman: /Reproductive Hx- electrician journeyman wireman Hx Now No 08/21/24 09:14 Gestational Age (in weeks): EDC: Hx Hx Para Hx Section SAB No 08/21/24 09:14 PFSH Medical History (Updated 08/21/24 @ 09:23 by Altagracia Sibley) Loss of hearing Wears glasses Post-menopausal Arthritis High cholesterol Non-smoker Cardiology follow-up encounter Hypertension TIA (transient ischemic attack) Stroke/cerebrovascular accident Home Medications ?Medication ?Instructions ?Recorded ?Last Taken ?Type hydrochlorothiazide 12.5 mg capsule 12.5 mg PO DAILY 12/10/18 Unknown History qqfvvdsg-sjna-vpcj 8 mg-folic 400 1 ea PO DAILY 12/10/18 Unknown History mcg-K 50 mcg-lutein 300 mcg tablet (Centrum Silver Women) Bifidobacterium infantis 4 mg 4 mg PO DAILY 08/21/24 Unknown History capsule (Align (B.infantis)) ascorbic acid (vitamin C) 500 mg 500 mg PO DAILY 08/21/24 Unknown History tablet (C-500) aspirin 25 mg-dipyridamole 200 mg 1 cap PO BID 08/21/24 Unknown History capsule,ext.release 12 hr multiphase atorvastatin 20 mg tablet 10 mg PO QHS 12/23/24 Unknown History calcium carbonate (Calcium 600) 600 mg PO BID 08/21/24 Unknown History cholecalciferol (vitamin D3) 25 25 mcg PO DAILY 08/21/24 Unknown History mcg (1,000 unit) capsule (Vitamin D3) coenzyme Q10 100 mg capsule 200 mg PO DAILY 08/21/24 Unknown History (CoQ-10) metoprolol succinate 25 mg 25 mg PO DAILY 08/21/24 Unknown History tablet,extended release 24 hr Allergy/AdvReac Type Severity Reaction Status Date / Time lisinopril AdvReac Other Verified 08/21/24 09:02 risedronate sodium (From AdvReac Unknown Verified 08/21/24 09:02 Actonel) Surgical History (Updated 08/21/24 @ 09:23 by Altagracia Sibley) Hx of colonoscopy History of tubal ligation Hx of surgical procedure Social History Smoking Status: Never smoker Audit: Pertinent Findings Pertinent Findings EKG Perinent findings: July 12, 2024. Normal sinus rhythm. Minimal voltage criteria for left ventricular hypertrophy. Consult pertinent findings: July 12, 2024 Dr. Ribeiro at [facility]. Apparently patient was already cleared for cardiac April 2024. And no new cardiac concerns at this time. 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 She is on Aggrenox and is tolerating it well. Hypertension is controlled with metoprolol and hydrochlorothiazide. Recommendation Anesthesia Recommendation Anesthesia recommendation: OPTIMIZED for anesthesia
[2024-08-25 08:44] LABS: Absolute Lymphocyte Count 1.25 X10^3/uL (0.83-4.51); Absolute Neutrophil Count 3.4 X10^3/uL (2.0-7.7); Basophil# 0.06 X10^3/uL; Basophil% 1.1 % (0-1); Eosinophil# 0.23 X10^3/uL; Eosinophils% 4.2 % (0-5); Hemoglobin 12.8 g/dL (12.0-15.0); Lymphocyte # 1.25 X10^3/ul (0.83-4.51); Mean Corpuscular Hgb 29.2 pg (27.0-32.0); Mean Corpuscular Volume 91.3 fL (81-99); Mean Platelet Vol. 9.7 fl (6.2-12.0); Monocyte# 0.49 X10^3/uL; NRBC Flagged by Analyzer 0 % (0-5); Neutrophil % 62.5 % (47-70); Platelet Count 242 K/mm3 (150-450); RBC Distribution Width CV 12.7 % (11.6-14.6); RBC Distribution Width SD 42.4 fl (35.1-43.9); Red Blood Count 4.38 M/mm3 (4.2-5.4); White Blood Count 5.4 K/mm3 (4.4-11.0)
[2024-08-25 09:42] LABS: Albumin, Serum 3.6 g/dL (3.2-5.0); Anion Gap 5 (5-15); BUN 14 mg/dL (7-18); BUN/Creat Ratio 20.9 RATIO (10-20); Calcium,Total 9.2 mg/dL (8.5-10.1); Chloride 108 mmol/L (98-107); Creatinine, Serum 0.67 mg/dL (0.55-1.02); EST Glomerular Filtration Rate 91 mL/min (>60); Est Glom Filt Rate - Afr Amer 110 mL/min (>60); Glucose 99 mg/dL (74-106); Magnesium 2.1 mg/dL (1.6-2.6); Sodium Level 141 mmol/L (136-145)
--- NOTE | 2024-09-10 20:02 | PCM.HP.BLA ---
History and Physical History and Physical Patient Name: Mona Cool : 1945From:? SEBASTIEN HAGAN PA-C DATE OF PRE-OPERATIVE EXAM: 09/08/2024 DATE OF SURGERY:? 09/18/2024 SCHEDULED PROCEDURE:? Direct interior left total hip arthroplasty HISTORY OF PRESENT ILLNESS: Preoperative history and physical exam was performed on September 08, 2024.? This is a 79-year-old female who has had ongoing pain since December 2023.? Patient's pain has been intermittent and sharp.? Pain is increased with going up and down stairs, walking and getting in and out of cars.? She has difficulty getting dressed putting on her socks and shoes.? She has stiffness and pain in the morning.? Patient has pain in the thigh and lateral hip.? She has history of impingement and bone spurring.? Patient has tried conservative measures including previous left hip intra-articular corticosteroid injection on March 16, 2024.? Patient had minimal improvement with the injection.? Patient denies past history of surgery on the left hip.? She is currently obtaining surgical clearance from the primary care provider Dr. Mccray and cook chief Dr. Ribeiro.? Patient has medical history pertinent for hypertension, previous stroke/TIA, hypercholesterolemia, and patent foramen ovale.? She denies past history of DVT or pulmonary embolism.? After failing conservative measures and discussing all treatment options with Dr. Moises Yi, the patient does wish to proceed with a direct anterior left total hip arthroplasty.? No recent chest pain, shortness of breath, fevers chills or recent infections. REVIEW OF SYSTEMS: Review Of Systems: Constitutional: Denies change in appetite, fever and weight change. Cardiovasular: Denies chest pain, heart murmur and irregular heartbeat. Respiratory: Denies cough, pneumonia, shortness of breath, tuberculosis and wheezing. Gastrointestinal: Denies constipation, diarrhea, heartburn, nausea, rectal itching, bloody stools and vomiting. Musculoskeletal: Reports pain and trouble walking, but denies leg swelling and weakness. Skin: Denies Raynaud's, history of shingles and tattoo. Neurological: Denies ambulatory dysfunction, dizziness, numbness/tingling and tremor. Psychiatric: Denies anxiety, insomnia and stress. Hematologic/Lymphatic: Denies anemia, bleeding/bruising tendency and past transfusion. Reviewed and updated. PAST MEDICAL HISTORY: Advance Care Plan: Other Directive, LIVING WILL Effective Date: 01/31/2024 Other Directive, POA Effective Date: 01/31/2024 Past Medical History: Medical Problems: Arthritis, Hard of Hearing Stroke - (1969) Osteopenia, High Blood Pressure, Hypercholesterolemia, Patent foramen ovale Accidents: None Surgical Hx: Left Hip Injection Under Fluoro - (03/16/2024) DR. YI AT [facility] Anesthesia Complications: None Assistive Devices: Glasses Reviewed and updated. SOCIAL HISTORY: Social History: Marital: .Occupation: Teacher.Work Status: Retired.Hand Dominance: Right-handed. Personal Habits:? Cigarette Use: Never Smoked Cigarettes.Smokeless Tobacco: Never Used Smokeless Tobacco.E-Cigarette Use: Never used.Alcohol: Denies use.Drug Use: Denies Use.Enjoy Exercising: Exercises 1-3 X/Week. Reviewed, no changes. VITALS: Ht: 64 Wt: 140lb Wt k.504 BMI: 24.0 BP: 118/80 Pulse: 66 Resp: 16 T: 96.6 T: 35.9C Pain Level: 6 O2SatR: 99 ALLERGIES: Actonel Prinivil MEDICATIONS: Aspirin-Dipyridamole ER 25-200 mg 1 po bid, Metoprolol Succinate ER 25 mg daily, Atorvastatin Calcium 20 mg daily, Caltrate 600+D Plus Minerals 600-800 MG-Unit one per day, Centrum Silver? 1 by mouth every day, Align Extra Strength? daily, Vitamin C 500 mg 1 by mouth every day, Vitamin D3 1000 Unit 1x/day, Coq-10 100 mg 1 by mouth every day PRE-OP EXAM: General appearance:NORMAL? Other: Eyes: Conjunctivae and lids: NORMAL? Pupils: ERR Ears, Nose, Mouth, and Throat: NORMAL? Other: Inspection of lips, teeth and gums: NORMAL?? Other: Neck: Examination of neck: no masses noted. Respiratory: Assessment of respiratory effort: NORMAL?? Other: ? Auscultation of lungs: clear to auscultation no wheezes, rhonchi or rales. Cardiovascular:? Auscultation of heart: regular rate and rhythm, positive systolic murmur PHYSICAL EXAMINATION: On exam patient does walk with an antalgic gait.? Left hip is without erythema or signs of infection.? She has moderate tenderness to palpation of the greater trochanteric region.? Hip flexion 85 with obligatory external rotation, internal rotation to neutral, external rotation 15.? Range of motion increases pain in the hip and groin.? Sensation intact to light touch.? Leg lengths are equal. IMAGING STUDIES: Previous left hip x-rays reveal joint space narrowing with subchondral sclerosis and osteophyte formation consistent with moderate stage III osteoarthritis IMPRESSION: 1.? Left hip osteoarthritis 2.? Right hip osteoarthritis 3.? Hypertension 4.? History of previous stroke/TIA 5.? Hypercholesterolemia 6.? Patent foramen ovale PLAN: Dr. Moises Yi did discuss and review with the patient all treatment options including surgical versus nonsurgical options.? I will continue plan established by Dr. Moises Yi.? Patient does wish to proceed with the above-stated procedure.? Will continue plan that has been established by Dr. Moises Yi.? Potential risks, benefits, and complications of the procedure were discussed in detail including but not limited to , infection, nerve and blood vessel damage, persistent pain, numbness, tingling, paresthesias, blood clot, pulmonary embolism, and requirement for possible further surgery.? The patient expressed full understanding and has no further questions for the doctor.? Patient does agree to proceed with the above-stated procedure and has signed the surgery consent form. POST-OP MEDICATION PLAN: Pain Medications:? Postoperative pain regimen will be initiated by Dr. Moises Yi in the hospital.? We did reach out to Dr. Mccray and he is okay with 2 weeks of meloxicam postoperatively.? Patient will continue with our nutrition protocol.? She has a walker that she will bring to the hospital. DVT Prophylaxis:? Aspirin 81 mg twice daily for 4 weeks postoperatively.? Denies past history of DVT or pulmonary embolism This dictation was created using voice recognition software. Phonetic and/or grammatical errors may exist. ___? I have re-examined the patient.? There are no clinical changes since date of exam. ___? See progress notes for changes. ___? Dictated on admission Date: ? Time: Signature:
[2024-09-18] VITALS (13 sets, daily range): BP systolic 102–134; BP diastolic 41–93; PULSE 75–94; RESP 16–18; TEMP 36–36.9; O2SAT 93–100; BMI 24.1
[2024-09-18] MEDS: Gabapentin 600 MG Tablet PO (06:18)
[2024-09-18] MEDS: Lactated Ringers 1,000 ML 999 ML IV (06:18)
[2024-09-18] MEDS: Acetaminophen 500 MG Tablet 1000 MG PO ×3 (06:18→21:44)
[2024-09-18] MEDS: Magnesium 1 GM over 15 mins IV (06:19)
--- NOTE | 2024-09-18 06:30 | RAD_ITS ---
HISTORY: LT ANTERIOR HIP TOTAL. TECHNIQUE: 2 spot images. COMPARISON: XR 01/03/2024. FINDINGS: OSSEOUS STRUCTURES: Left hip arthroplasty noted . RAD/Hip 1 view with Pelvis IMPRESSION: Image guidance for left hip arthroplasty. Electronically Signed: Jennie Kramer MD at 8:55 EST ,
--- NOTE | 2024-09-18 06:39 | PCM.PRE.AN2 ---
ASA Classification* ASA Classification ASA Classification: 3 Assessment & Plan Anesthesia* Anesthesia Assessment Anesthesia Assessment: Discussed sedation and/or anesthesia options, risks, benefits, and alternatives with patient/parents/legal guardian/POA. Questions invited. The patient/parents/legal guardian/POA seems to understand and agrees to proceed with anesthesia plan. Reviewed the physical assessment, medical history, allergy history and patient home medications list prior to surgery/procedure/anesthetic and documented any changes. Performed airway and anesthesia risk assessments. Anesthesia Type Anesthesia Type: Spinal History Source History Obtained from:: Patient and Chart Anesthesia Focused Assessment* Temperature: 98.4 F Pulse Rate: 87 Blood Pressure: 134/72 Respiratory Rate: 16 Pulse Ox: 98 Oxygen Delivery Method: Room Air Airway Assessment Mouth opens: >3 cm Mallampati Score: III Teeth Condition: Intact Neck Range of motion (ROM): Full ROM Focused Labs Anesthesia Preop lab: CBC WBC 5.4 K/mm3 (4.4-11.0) 08/25/24 08:14 RBC 4.38 M/mm3 (4.2-5.4) 08/25/24 08:14 Hgb 12.8 g/dL (12.0-15.0) 08/25/24 08:14 Hct 40.0 % (37-47) 08/25/24 08:14 Plt Count 242 K/mm3 (150-450) 08/25/24 08:14 CHEMISTRY Potassium 4.0 mmol/L (3.5-5.1) 08/25/24 08:14 Sodium 141 mmol/L (136-145) 08/25/24 08:14 Magnesium 2.1 mg/dL (1.6-2.6) 08/25/24 08:14 BUN 14 mg/dL (7-18) 08/25/24 08:14 Creatinine 0.67 mg/dL (0.55-1.02) 08/25/24 08:14 Glucose 99 mg/dL (74-106) 08/25/24 08:14 TSH 1.10 uIU/mL (0.358-3.74) 01/13/21 09:14 COAG Pre-Assessment Diagnosis/Proposed Procedure Planned Operative Procedure(s): ANTERIOR LEFT TOTAL HIP ARTHROPLASTY Anesthesia History Anesthesia History - mechanical engineering advisor: Anesthesia History - mechanical engineering advisor Hx Hospitalization No 08/21/24 09:14 Any Problems With Anesthesia No 08/21/24 09:14 Cholinesterase deficiency No 08/21/24 09:14 You/Your Family Experience No 08/21/24 09:14 fever (hyperthermia) with Relationship Recent Exposure to Contagious No 09/18/24 06:02 Disease Does patient have nerve No 08/21/24 09:14 stimulator Patient instructed to have device shut off --Does patient have Pacemaker No 09/18/24 06:02 or ICD? When Was Last Pacemaker Check QUESTION #4 FULL TEXT: You/Your Family Experience fever (hyperthermia) with Anesthesia Any additional information?: Yes Any Problems With Anesthesia: Yes (post-op TIA after colonoscopy) Cholinesterase deficiency: No You/your family experience fever (hyperthermia) with anesthesia: No Last Oral Intake Last Oral intake: Last Oral Intake NPO since 04:10 09/18/24 06:02 Meds taken in AM with sips of Yes 09/18/24 06:02 water? Meds patient instructed to take am of surgery Any additional information?: Yes NPO since: 03:30 Meds taken in AM with sips of water?: Yes Meds patient instructed to take am of surgery: metoprolol PONV PONV - mechanical engineering advisor: PONV - mechanical engineering advisor Female Yes 08/21/24 09:14 HX of Motion Sickness No 08/21/24 09:14 HX of N/V After Surgery No 08/21/24 09:14 Non-Smoker Yes 08/21/24 09:14 Duration of Surgery greater Yes 08/21/24 09:14 than 60 minutes Number of Risk Factors 3 08/21/24 09:14 PONV Score Moderate Risk 08/21/24 09:14 Any additional information?: No Height & Weight Height & Weight: Anesthesia: Height & Weight Height 5 ft 4 in 09/18/24 06:02 Weight: 63.8 kg 09/18/24 06:02 Body Mass Index (BMI) 24.1 09/18/24 06:02 Respiratory Assessment Respiratory Assessment - mechanical engineering advisor: Respiratory Tract Infection Hx - mechanical engineering advisor Hx Respiratory Tract Infection No 08/21/24 09:14 STOP Sleep Apnea STOP Sleep Apnea - mechanical engineering advisor: STOP Sleep Apnea - mechanical engineering advisor Hx Hypertension Yes: CONTROLLED WITH MED 08/21/24 09:14 Hx Sleep Apnea No 08/21/24 09:14 CPAP BIPAP Do you snore loudly (louder No 08/21/24 09:14 than talking or can be heard Do you often feel tired/ No 08/21/24 09:14 fatigued/ sleepy during daytime? Has anyone observed you stop No 08/21/24 09:14 breathing during sleep? STOP Results Negative 08/21/24 09:14 QUESTION #5 FULL TEXT : Do you snore loudly (louder than talking or can be heard through closed doors)? Tobacco Use History Tobacco Use History - mechanical engineering advisor: Tobacco Use History - mechanical engineering advisor Tobacco Use Non-smoker 01/13/21 09:13 Smoking Status Never smoker 08/21/24 09:14 Hx Tobacco Use No 08/21/24 09:14 Years Smoking Packs Smoked per Day Smoking Cessation Date was within the last 15 years Hx Smoking Cessation Date Hx Smoking Cessation Counseling Hematologic Medial History Hematologic Hx - mechanical engineering advisor: Hematologic Medical Hx - documentation designer Hx of Blood Transfusion No 08/21/24 09:14 Hx of Transfusion in last 3 No 08/21/24 09:14 Months Date of Last Transfusion (if within last 3 months) Ever experience any problems No 08/21/24 09:14 with transfusion(s)? Specify any problems Hx of Preganancy in last 3 No 08/21/24 09:14 Months Nurse Filling Out Transfusion DSCHRIBER 08/21/24 09:14 & Questions: Date: 08/21/24 08/21/24 09:14 Time: 09:16 08/21/24 09:14 Patient unable to answer at this time (ie. confused, unrespo /Reproduction History /Reproductive History - mechanical engineering advisor: /Reproductive Hx- mechanical engineering advisor Hx Now No 08/21/24 09:14 Gestational Age (in weeks): EDC: Hx Hx Para Hx Section SAB No 08/21/24 09:14 Active Medications Active Medications: Current Medications Generic Name Dose Route Start Last Admin Trade Name Freq PRN Reason Stop Dose Admin Acetaminophen 1,000 mg 09/18/24 07:30 09/18/24 06:18 Acetaminophen 500 Mg Tablet PO 09/18/24 07:31 1,000 mg X1 ONE Administration Tranexamic Acid 2,000 mg/ 0 mg 09/18/24 07:30 Sodium Chloride 100 ml OPERA.SITE 09/18/24 07:31 X1 ONE Sodium Chloride 77.4 ml/ 0 ml 09/18/24 07:30 Ropivacaine 200 mg/ OPERA.SITE 09/18/24 07:31 Epinephrine HCl 0.6 mg/ X1 ONE Ketorolac Tromethamine 30 mg/ Morphine Sulfate 5 mg Dexamethasone Sodium Phosphate 10 mg 09/18/24 07:30 Dexamethasone 10 Mg/Ml Vial IV 09/18/24 07:31 X1 ONE Gabapentin 600 mg 09/18/24 07:30 09/18/24 06:18 Gabapentin 600 Mg Tablet PO 09/18/24 07:31 600 mg X1 ONE Administration Lactated Ringer's 1,000 mls @ 999 mls/hr 09/18/24 07:30 09/18/24 06:18 IV 09/18/24 08:30 999 mls/hr .Q1H1M NICKIE Administration Cefazolin Sodium 2 gm/ N/A 20 mls @ 400 mls/hr 09/18/24 07:30 IV 09/18/24 07:32 PREOP ONE Magnesium Sulfate 1 gm/ 102 mls @ 408 mls/hr 09/18/24 07:30 09/18/24 06:19 Dextrose IV 09/18/24 07:44 408 mls/hr X1 ONE Administration Insulin Human Lispro 1 - 6 unit 09/18/24 07:30 Insulin Lispro 100 Unit/Ml Insuln.Pen SC 09/18/24 18:00 Q4H PRN PRN BG>/= 180, SEE PROTOCOL Protocol PFSH Medical History (Updated 09/18/24 @ 06:[address] Homer Telles MD) PFO (patent foramen ovale) Loss of hearing Wears glasses Post-menopausal Arthritis High cholesterol Non-smoker Cardiology follow-up encounter Hypertension TIA (transient ischemic attack) Stroke/cerebrovascular accident Home Medications ?Medication ?Instructions ?Recorded ?Last Taken ?Type hydrochlorothiazide 12.5 mg capsule 12.5 mg PO DAILY 12/10/18 09/17/24 History ekrivolc-ncor-hasb 8 mg-folic 400 1 ea PO DAILY 12/10/18 09/12/24 History mcg-K 50 mcg-lutein 300 mcg tablet (Centrum Silver Women) Bifidobacterium infantis 4 mg 4 mg PO DAILY 08/21/24 09/12/24 History capsule (Align (B.infantis)) ascorbic acid (vitamin C) 500 mg 500 mg PO DAILY 08/21/24 09/12/24 History tablet (C-500) aspirin 25 mg-dipyridamole 200 mg 1 cap PO BID 08/21/24 09/17/24 History capsule,ext.release 12 hr multiphase atorvastatin 20 mg tablet 10 mg PO QHS 08/21/24 09/17/24 History calcium carbonate (Calcium 600) 600 mg PO BID 08/21/24 09/12/24 History cholecalciferol (vitamin D3) 25 25 mcg PO DAILY 08/21/24 09/17/24 History mcg (1,000 unit) capsule (Vitamin D3) coenzyme Q10 100 mg capsule 200 mg PO DAILY 08/21/24 09/12/24 History (CoQ-10) metoprolol succinate 25 mg 25 mg PO DAILY 08/21/24 09/18/24 04:10 History tablet,extended release 24 hr Allergy/AdvReac Type Severity Reaction Status Date / Time lisinopril AdvReac Other Verified 09/18/24 05:58 risedronate sodium (From AdvReac Unknown Verified 09/18/24 05:58 Actonel) Surgical History (Updated 08/21/24 @ 09:23 by Altagracia Sibley) Hx of colonoscopy History of tubal ligation Hx of surgical procedure Social History Smoking Status: Never smoker Review of Systems (Anesthesia) ROS Narrative System reviewed and no additional complaints, except as documented.
[2024-09-18 06:53] LABS: Bedside Glucose 69 mg/dL (74-106)
--- NOTE | 2024-09-18 07:30 | FEM_PTH ---
PATIENT: MARTA DEAN LOC: MS3 U#:[id number] AGE/SX: 79/F ROOM: UT311 RE09/18/[address]: Dr. Moises Yi MD : 1945 BED: 1 DIS: 09/19/2024 SPEC #: [id number] RECD: 09/18/24 12:55 STATUS: NGUYEN REBrendan #: [id number] SISSY: 09/18/24 07:[address]: Moises Yi DEPT: SURGICAL PATHOLOGY RECD BY: Reyna Coy ENTERED: 09/18/24 13:34 SP TYPE: FEM HEAD OTHR DR: MD Dr. Jeremi Castle DO Dr. Paul Nielsen, MD Tissues: Femoral region, NOS Procedures: Decalcification bone/plaque Surgery Specimen Level V HEADER OPERATION: Anterior left total hip arthroplasty PRE-OP DIAGNOSIS: Left hip osteoarthritis TISSUE SUBMITTED: Left femoral head MICROSCOPIC DIAGNOSIS Left hip bone and soft tissue, total hip replacement/resection: Femoral head with degenerative osteoarthritic changes. Fragments of fibroadipose tissue, fibroconnective tissue and reactive synovial tissue. NIURKA: 09/21/2024 MICROSCOPIC DESCRIPTION Slides are reviewed. GROSS DESCRIPTION Received is one container labeled with the patient's name and designated bone and soft tissue left hip. The specimen consists of a cordova femoral head. The femoral head measures 4 x 4 x 4.5 cm. Also present in the container is a detached piece of bone consistent with femoral neck measuring 4 x 3 x 1.5cm. The articular surface displays prominent osteophyte formation, eburnation and bone erosion. Also present in the specimen container are multiple irregular fragments of bone reamings and pink-yellow soft tissue measuring in aggregate 6.5 x 6 x 1.5 cm. Also present attached to the top of femoral head is a piece of soft tissue measuring 2 x 0.6 x 0.3cm. Cloth Bleaching Range Operator Chief sections are submitted in two cassettes as follows: 1 - soft tissue, 2 - bone after decalcification. / NIURKA. 09/18/2024 TC:5 CPT: 36963, 97489
[2024-09-18] MEDS: Cefazolin 2 GM in Syringe 10 ML IV (07:39)
[2024-09-18] MEDS: dexAMETHasone 10 MG/ML Vial IV (08:07)
[2024-09-18] MEDS: Lactated Ringers 1,000 ML 75 ML IV ×2 (08:50→09:15)
--- NOTE | 2024-09-18 08:56 | OP.PCM_ITS ---
Operative Report (Standard) Operative Information Date of Procedure: 09/18/24 Pre-Operative Diagnosis: Left hip primary osteoarthritis Post-Operative Diagnosis: Left hip primary osteoarthritis Surgery/Procedure Performed: Left minimally invasive direct anterior total replacement cloth desizing range operator chief: Yes Porcelain Enamel Repairer: Jose Angel Cadena Tasks completed by food and beverage assistant manager: Other (See body of operative report) Additional clinical lab assistant?: Yes Additional Area Director #2: Cristel Garcia Tasks completed by clinical lab assistant #2: Opening & closing and Retracting Type of Anesthesia: Spinal RN Documented Start/Stop Times: Operation Date: 09/18/24 07:30 Case Time Into Pre-Op 09/18/24 05:38 Out of Pre-Op 09/18/24 07:37 Anesthesia Start 09/18/24 07:39 Into Room 09/18/24 07:39 Procedure Start 09/18/24 08:06 Procedure End 09/18/24 09:25 Anesthesia End 09/18/24 09:32 Out of Room 09/18/24 09:32 Into Recovery 09/18/24 09:35 Procedure Start Time: 08:06 Procedure Stop Time: 09:25 Select all DRAINS/GRAFTS/IMPLANTS that apply: Prosthetic device Prosthetic device details: See body of operative report Special Medications: 2 g Ancef, 2 g TXA lavage and wound, 10 mg Decadron, joint cocktail (5 mg Duramorph, 30 mL of 0.5% Ropivicaine, 1000 units of epinephrine, 30 mg of Toradol) Estimated Blood Loss: 200 Fluids Replaced: 1800 mL crystalloid Specimen collected: Yes Description of specimen(s) removed: Left femoral head Description of surgery: Components used: 1. Insignia colade 2 [place] femoral stem size 5 high offset 2. Huang trident 2 acetabular shell size 48 mm 3. [place] X3 polyethylene D 4. Huang Biolox delta 36mm, -5mm femoral head Brief history operative indications: 79 yo F who failed conservative measures for their hip osteoarthritis. X-rays were consistent with osteoarthritis including joint space narrowing, osteophyte formation and subchondral cysts. Total hip replacement was discussed with the patient with risks and benefits including but not limited to blood loss, DVTs, PEs, neurovascular damage, dislocation, general risks of anesthesia including loss of life. Patient demonstrated an understanding medical clearance is obtained the patient was consented for surgery. Procedure: On the date of procedure the patient's L hip was marked in the preoperative area. Patient was then taken back to the operating room where anesthesia assumed control of the C-spine and airway and administered anesthetic. Patient was transferred to the operating table and placed in the supine position. The hips were placed at the break of the bed and a sacral bump was placed. The L lower extremity was then prepped out in a sterile fashion using chlorhexidine while the surgeon scrubbed. The PA was vital in the positioning of the patient. Upon reentering the room the L lower extremity was draped in the standard orthopedic fashion and the incision was marked. A timeout was called and everyone agreed upon the side, the site, the procedure be performed, antibody given, and patient's identity. At this time incision was made through skin, subcutaneous tissue, and fat down to fascia. The fascia was then incised and the TFL was retracted laterally. A retractor was placed on the lateral border of the femoral neck. Attention was directed to the inferior portion of the approach and all crossing vessels were identified and appropriately coagulated. A retractor was then placed on the medial portion of the femoral neck. The anterior capsule was then cleared of all soft tissue and then H shaped capsulotomy was made. The retractors were then placed inside the capsule. The femoral neck was identified and a cleanup cut was made. At this time a power corkscrew was used to remove the femoral head. Attention was then turned toward the acetabulum where the soft tissues were appropriately retracted and the acetabulum was sequentially reamed to 48 mm. A 48 mm cup was then selected and impacted into place. Acetabular liner was impacted into place and locking mechanism was verified. The position of the acetabular cup was then verified under live fluoroscopy. Attention was then turned to the femur. Soft tissue releases on the medial and lateral femoral neck were appropriately done, the leg was externally rotated and lateralized. A Woodard retractor was placed medially and proximally to the greater trochanter this allowed appropriate visualization and exposure of the femoral canal. Rongeour was then used to remove excess lateral bone. A canal finder and entry broach were used to open the proximal canal. Once we verified we were down the femoral canal we subsequently broached up to a size 5 femur. The appropriate neck was placed in the previously selected head was trialed with a -5 mm neck. Traction was pulled and the hip was reduced with internal rotation. Once it was appropriately reduced and stability was checked. There was minimal shuck, equal leg lengths and appropriate stability with hyperextension and external rotation as well as with 90? flexion and internal rotation. Fluoroscopy was then also used to verify the position of the components and leg lengths using the contralateral side for comparison. The trial components were then dislocated the proximal femur was again exposed and the components were removed from the wound. The final components were verified and opened. The wound was copiously irrigated out with normal saline. The acetabulum was checked for any residual debris. The final components were placed and impacted. Traction and internal rotation were again used to reduce the hip. After adequate reduction the hip remained stable with appropriate leg lengths. The final components were once again checked with live fluoroscopy and were found to be satisfactory. The wound was then copiously irrigated with normal saline once more, and hemostasis was obtained. Closure was then done using #1 Vicryl runner to close the fascia. A 2-0 vicryl interuppted sutures were used to close the subcutaneous skin. A 3-0 Monocryl and Steri-Strips were used for final skin closure. A Silverlon dressing was placed. Patient was awakened by anesthesia and transferred to the [facility]. Patient was then transferred to the PACU for recovery. Postoperative plan: Patient will get 24 hours postop antibiotics. Patient will get in-house physical therapy and will be weight-bear as tolerated. Patient will follow up in office in 2 weeks for a wound check and x-rays. Aspirin 81 mg twice daily. Surgical Findings: Stable hip. Equal leg lengths based on examination. Stage IV osteoarthritis Complications Complications: No Admit VTE Documentation VTE Present on Admission: No VTE Mechan Device Prophylaxis: SCD's and Thigh High AVTAR Hose VTE Pharm Prophylaxis ordered?: Yes
[2024-09-18] MEDS: JPS (Morphine 10mg/ml) OPERA.SITE (08:58)
[2024-09-18] MEDS: TRANEXAMIC ACID 2,000 MG, 0.9% Normal Saline (100mL Bag) 100 ML OPERA.SITE (09:00)
--- NOTE | 2024-09-18 09:03 | RAD_ITS ---
STUDY: X-RAY - PELVIS AND LEFT HIP REASON FOR EXAM: Female, 79 years old. Post Op -- AP both hips on single melania/lateral of op hip PACU TECHNIQUE: 2 views of the pelvis and hip. COMPARISON: Comparison is made with prior study dated January 03, 2024. FINDINGS: There is a non-specific bowel gas pattern. Postoperative soft tissue changes. There is narrowing with cortical sclerosis and osteophyte formation of the sacroiliac joint consistent with degenerative osteoarthritic changes. Normal bilateral superior and inferior pubic rami. Normal pubic symphysis. Normal bilateral ischial tuberosities. The patient is status post left total replacement. There is good alignment. Moderate degree of joint space narrowing of the right RAD/Hip Min 2 Views (Portable) IMPRESSION: Status post left total hip replacement. There is good alignment. Moderate degree of joint space narrowing of the right hip. Postoperative soft tissue swelling. Electronically Signed: Rickie Barksdale MD at 10:29 EST ,
--- NOTE | 2024-09-18 10:10 | PCM.POST.ANE ---
Anesthesia: Postop Eval I Current Vital Signs Temperature: 97.6 F Pulse Rate: 92 Blood Pressure: 112/93 Respiratory Rate: 16 Pulse Ox: 96 Oxygen Delivery Method: Nasal Cannula Oxygen Flow Rate (L/min): 4 Assessment Airway patent: Yes Spontaneous unlabored respirations: Yes Mental status: Awake and Calm nausea: No Vomiting: No Anesthesia Complication: No Fluid Hydration Crystalloid volume administer (ml): 2,000 Total IV fluid infused: 2,000 Progress Note Anesthesia document: Postop Eval 1 completed: Yes
[2024-09-18] MEDS: Ketorolac 15 MG/ML Vial IV (10:11)
--- NOTE | 2024-09-18 14:40 | PCM.PN.HOSP ---
Reason for Visit Reason for Visit: Diagnoses Encounter for other preprocedural examination (09/18/24) Subjective Subjective Because requested by Dr. Yi for postoperative medical management. Patient feels a bit groggy after surgery. Some nausea. Objective Data Objective Data Vital Signs: Vital Signs Temp Pulse Resp BP Pulse Ox O2 Del Method O2 Flow Rate 36.4 C L 75 18 118/63 99 Nasal Cannula 1 09/18/24 12:42 09/18/24 12:42 09/18/24 12:42 09/18/24 12:42 09/18/24 12:42 09/18/24 12:42 09/18/24 12:42 Oxygen Flow Rate (L/min) 1 Oxygen Delivery Method Nasal Cannula Weight: 63.8 kg Body Mass Index (BMI) 24.1 Intake & Output: Intake and Output for Last 24 Hours 09/16/24 09/17/24 09/18/24 23:59 23:59 23:59 Intake Total 2362 / 2362 Balance 2362 / 2362 Lab / Micro Data 08/25/24 08:14 08/25/24 08:14 Labs: Laboratory Results - last 24 hr 09/18/24 06:10: POC Glucose 69 L Micro: Microbiology 08/25/24 08:14 Swab (Method) Nasal Screen MRSA/MSSA - Final Radiography Diagnostic Testing: Radiology Impression Hip X-Ray 09/18/24 09:03 IMPRESSION: Status post left total hip replacement. There is good alignment. Moderate degree of joint space narrowing of the right hip. Postoperative soft tissue swelling. Electronically Signed: Rickie Barksdale MD at 10:29 EST , Physical Exam Const alert and no apparent distress Constitutional Narrative: Slightly groggy but appropriate. Resp normal respiratory effort, no retractions, no use of accessory muscles and clear to auscultation bilaterally Cardio regular rate, regular rhythm, S1 normal heart sound and S2 normal heart sound GI normal to inspection, nondistended, normoactive bowel sounds, soft to palpation, non-tender and non-distended Extremity normal to inspection and full ROM Neuro Sensorium / Orientation: awake and alert Assessment & Plan Assessment/Plan (1) Status post left hip replacement: PLAN: Plan Hypertension: Stable. Continue with HCTZ and metoprolol succinate. Hyperlipidemia: Continue with atorvastatin. Status post left hip replacement: Management per orthopedics. VTE prophylaxis per orthopedics. Patient medically stable for discharge. The hospital service will follow peripherally. Please contact for any acute issues or questions. Charges/Coding Visit Charges Inpatient E&M: 91597 Subs Hosp L2
[2024-09-18] MEDS: Aspirin 81 MG TAB.CHEW PO (16:31)
[2024-09-18] MEDS: Calcium (Elemental) 500 MG Tablet PO (16:31)
[2024-09-18] MEDS: Cefazolin 1 GM/50 ML BAG IV (16:31)
--- NOTE | 2024-09-18 21:22 | POSTOPAN2_ITS ---
Anesthesia Postop Eval I Sum Postop Eval Completion status Anesthesia document: Postop Eval 1 completed: Yes Anesthesia Postop Eval I Summary Anesthesia Postop Eval I Summary: Anesthesia Postop Eval I: Assessment Summary Airway patent Yes 09/18/24 10:11 RESEARCH ANALYST.SKOBY Spontaneous unlabored Yes 09/18/24 10:11 RESEARCH ANALYST.MONY respirations Mental status Awake,Calm 09/18/24 10:11 RESEARCH ANALYST.SKOBY nausea No 09/18/24 10:11 RESEARCH ANALYST.SKOBY Vomiting No 09/18/24 10:11 RESEARCH ANALYST.LYNDSAYOBKendell Anesthesia Postop Eval I: Fluid Summary Crystalloid volume administer 2,000 09/18/24 10:11 RESEARCH ANALYST.SKOBY (ml) Colloids volume administered ( ml) Blood Product volume administered (ml) Total IV fluid infused 2,000 09/18/24 10:11 RESEARCH ANALYST.LYNDSAYOBKendell Anesthesia Postop Eval I: Summary Notes Anesthesia Complication No 09/18/24 10:11 RESEARCH ANALYST.MONY Anesthesia Complication Comment: Post-operative progress note Anesthesia: Postop Eval II Evaluation Mental status: Awake and Calm Pain Level: 4 nausea: No Vomiting: No Complications Anesthesia Complication: No
--- NOTE | 2024-09-18 21:22 | PCM.POSTANE2 ---
Anesthesia Postop Eval I Sum Postop Eval Completion status Anesthesia document: Postop Eval 1 completed: Yes Anesthesia Postop Eval I Summary Anesthesia Postop Eval I Summary: Anesthesia Postop Eval I: Assessment Summary Airway patent Yes 09/18/24 10:11 BOTTOM [email or web address].SKOBY Spontaneous unlabored Yes 09/18/24 10:11 BOTTOM FILLER.MONY respirations Mental status Awake,Calm 09/18/24 10:11 BOTTOM FILLER.SKOBY nausea No 09/18/24 10:11 BOTTOM FILLER.SKOBY Vomiting No 09/18/24 10:11 BOTTOM FILLER.LYNDSAYOBKendell Anesthesia Postop Eval I: Fluid Summary Crystalloid volume administer 2,000 09/18/24 10:11 BOTTOM FILLER.SKOBY (ml) Colloids volume administered ( ml) Blood Product volume administered (ml) Total IV fluid infused 2,000 09/18/24 10:11 BOTTOM FILLER.LYNDSAYOBKendell Anesthesia Postop Eval I: Summary Notes Anesthesia Complication No 09/18/24 10:11 BOTTOM FILLER.MONY Anesthesia Complication Comment: Post-operative progress note Anesthesia: Postop Eval II Evaluation Mental status: Awake and Calm Pain Level: 4 nausea: No Vomiting: No Complications Anesthesia Complication: No
[2024-09-18] MEDS: Senna/Docusate Sodium 1 Tablet 2 TABLET PO (21:45)
[2024-09-18] MEDS: Atorvastatin Calcium 10 MG Tablet PO (21:45)
[2024-09-19] MEDS: Cefazolin 1 GM/50 ML BAG IV (00:13)
[2024-09-19 00:16] VITALS: BP 103/62; PULSE 79; RESP 18; TEMP 36.6; O2SAT 95
[2024-09-19 04:27] VITALS: BP 123/61; PULSE 84; RESP 18; TEMP 36.6; O2SAT 97
[2024-09-19] MEDS: Acetaminophen 500 MG Tablet 1000 MG PO (06:39)
[2024-09-19 07:03] LABS: Hematocrit 32.1 % (37-47); Hemoglobin 10.2 g/dL (12.0-15.0); Mean Corp Hgb Conc 31.8 g/dL (32-36); Mean Corpuscular Hgb 29.1 pg (27.0-32.0); Mean Corpuscular Volume 91.7 fL (81-99); Platelet Count 188 K/mm3 (150-450); RBC Distribution Width CV 12.9 % (11.6-14.6); RBC Distribution Width SD 42.6 fl (35.1-43.9); White Blood Count 9.7 K/mm3 (4.4-11.0)
--- NOTE | 2024-09-19 07:03 | PN.ORTHO_ITS ---
Subjective Subjective Patient is lying comfortably in bed. Patient states that she has been up and working with physical therapy and spent all evening in her bedside chair. Patient does admit to some nausea around noon yesterday following the surgery and anesthesia. Patient denies any shortness of breath, chest pain, calf pain, fever, chills, dizziness, nausea, and vomiting at this time. Patient denies any adverse events overnight. Objective Data Objective Data Vital Signs: Vital Signs Temp Pulse Resp BP Pulse Ox O2 Del Method O2 Flow Rate 97.8 F 84 18 123/61 H 97 Room Air 1 09/19/24 04:27 09/19/24 04:27 09/19/24 04:27 09/19/24 04:27 09/19/24 04:27 09/19/24 04:27 09/18/24 12:42 Oxygen Flow Rate (L/min) 1 Oxygen Delivery Method Room Air Weight: 63.8 kg Body Mass Index (BMI) 24.1 Intake & Output: Intake and Output for Last 24 Hours 09/17/24 09/18/24 09/19/24 23:59 23:59 23:59 Intake Total 3712 / 3712 850 / 850 Output Total 250 / 250 Balance 3462 / 3462 850 / 850 Lab / Micro Data 09/19/24 06:25 08/25/24 08:14 Micro: Microbiology 08/25/24 08:14 Swab (Method) Nasal Screen MRSA/MSSA - Final Radiography Diagnostic Testing: Radiology Impression Hip X-Ray 09/18/24 09:03 IMPRESSION: Status post left total hip replacement. There is good alignment. Moderate degree of joint space narrowing of the right hip. Postoperative soft tissue swelling. Electronically Signed: Rickie Barkdsale MD at 10:29 EST , Physical Exam Narrative 1. AVTAR hose in place bilaterally. 2. SCDs are in place bilaterally. 3. Dressing is clean dry and intact. 4. Left hip is soft and supple. 5. Dorsiflexion and plantarflexion are performed actively without pain or restriction. 6. Sensation in tact to light touch. 7. Neurovascularly intact overall. 8. Negative Homans bilaterally. Const alert and oriented x3 Assessment & Plan Assessment/Plan (1) Status post left hip replacement: PLAN: Postoperative left hip replacement day 1. 1. DVT prophylaxis: Patient will be on aspirin 81 mg 2 times per day for 4 weeks postoperatively. Patient was instructed that she could begin to take her regular anticoagulation aspirin-dipyridamole at this time. Patient was instructed to wear her AVTAR hose for 2 weeks postoperatively instructed that she can take them off at night. 2. Pain medications: Patient was instructed to take Tylenol 1000 mg every 8 hours [id number] taking no more than 3000 mg in 24 hours. Patient was instructed to take oxycodone 1 to 2 tablets every 4-6 hours as needed for breakthrough pain. OARRS report was reviewed today. The risk of abuse potential for narcotic pain medication was discussed and reviewed. Patient was advised not to drive a motor vehicle or operate heavy equipment while taking narcotic pain medication. They were instructed to use a minimal amount of narcotic pain medication as required for their current pain and decreased its use as appropriate for the pain. Patient voiced understanding. 3. Meloxicam: Patient has a history of stroke/TIA. Patient's PCP was contacted about taking meloxicam postoperatively. Patient's primary care provider said that she could take meloxicam postoperatively for 2 weeks only. Patient was instructed while taking meloxicam to take no other nonsteroidal anti- inflammatory medications. 4. Constipation: Patient was instructed to take senna as instructed until the first bowel movement to decrease risk of infection following surgery. Patient was instructed if they have not yet had a bowel movement in 3 days to call our office for reevaluation. 5. Physical therapy: Patient has been up and working with physical therapy. Patient does have outpatient physical therapy established. 6. Labs: Labs are pending at this time. Labs will be reviewed by myself when recorded. 7. Incentive spirometer: Patient was encouraged to use incentive spirometer every hour that they are awake for the first week to exercise long and decrease risk postoperative lung infection. 8. Patient is to follow postoperative instructions. 9. Appreciate medicine's involvement. 10. Disposition: Patient is good for discharge as long as labs from today are stable, pain is adequately controlled, and patient worked with physical therapy today. Okay for discharge per medicine's instructions as well. Patient will follow-up per the postoperative instruction worksheet. Patient is planning to go home at this point. Patient would like her prescription sent to [facility] outpatient pharmacy. Outpatient physical therapy is scheduled. Patient was encouraged to contact our office with any questions, concerns, new problems. I have reviewed the [place] Automated Rx Reporting System (OARRS) report for this patient for refill pattern and other prescriber involvement as part of the appropriate surveillance for the provision of acute and chronic controlled medications. The report was requested and reviewed on the date of this entry and was considered in the prescribing process. This dictation was created using voice recognition software. Phonetic and/or grammatical errors may exist.
--- NOTE | 2024-09-19 07:17 | DCINST_ITS ---
Discharge Instructions Diet Discharge Diet: No restrictions DC O2, CPAP, BIPAP needs Home O2 Discharge instructions: No Dressing / Incision Discharge Activity: Return to Normal Activity, May Not Drive (Patient is able to drive when she is able to walk 100 feet with use of a cane and is no longer taking narcotic pain medication.) and May Shower Weight Bearing Status: Weight bearing as tolerated (With walker.) Keep extremity elevated above heart level: Operative Extremity Dressing / Incision Call your doctor if your incision/area has: Continuous Slow Oozing, Increased Pain/ Swelling, Increased Redness and Foul Smelling Discharge Call your doctor if you observe: Fever of 101 or Higher, Inability to urinate, Inability to have a bowel movement, Shortness of breath, Dizziness, Fainting spells, Chest pain, Increased palpitations (irregular heartbeat), Calf discomfort and Uncontrolled pain Remove Dressing in: 4 days (Removal on 09/23/2024) Cleanse incision/area with: Soap & Water Additional Dressing/Incision Instructions:: Follow [facility] Post-op Instructions. Okay to shower over Mepilex dressing. Once dressing is removed do not use any ointments, Neosporin, salves, alcohol pads over the incision for 6 weeks postoperatively. Do not submerge underwater for 6 weeks postoperatively. Continue with AVTAR hose/elastic stockings for 2 weeks postoperatively. May remove at nighttime but needs to be placed back on the leg during the day. Do NOT use alcohol with narcotic pain medication. Do NOT make important decisions while taking narcotic medication. If you have problems with taking your medication (rash, itching, nausea, etc.) call the office at once. Follow Up Care Test Results: Test results from this visit will be discussed in further detail at your follow- up appointment, if applicable. Discharge Plan Admission Admit Date/Time: 09/18/24 09:02 Attending Provider: Moises Yi Primary Care Provider: August Mccray Consulting Providers: Eduardo Hagan; Jeremi Moreland Discharge Orders/Prescriptions Prescriptions: New acetaminophen 500 mg Tablet 1,000 mg PO TID 14 Days Qty: 84 0RF Rx Instructions: Do not take more than 3000 mg in 24 hours. aspirin 81 mg capsule 81 mg PO BIDCM 30 Days Qty: 60 0RF Rx Instructions: Take 81 mg aspirin 2 times daily for DVT prophylaxis. famotidine 20 mg Tablet 20 mg PO DAILY 30 Days Qty: 30 0RF meloxicam 7.5 mg Tablet 7.5 mg PO BID 14 Days Qty: 28 0RF Rx Instructions: Do not take with any other nonsteroidal anti-inflammatory medications. oxycodone 5 mg Tablet 5 - 10 mg PO Q4H PRN PRN (Reason: As needed for pain.) 7 Days Qty: 42 0RF sennosides-docusate sodium [Stimulant Laxative Plus] 8.6-50 mg Tablet 2 tab PO BID 3 Days Qty: 12 0RF Rx Instructions: Take until first bowel movement and then as needed. ondansetron 4 mg tablet,disintegrating 4 mg PO Q8H PRN (Reason: nausea and vomiting) 3 Days Qty: 20 0RF Rx Instructions: Take as needed for postoperative nausea and vomiting. Continued hydrochlorothiazide 12.5 MG capsule 12.5 mg PO DAILY Patient Comments: TAKE ONE CAPSULE BY MOUTH EVERY DAY Centrum Silver Women 1 EACH tablet 1 ea PO DAILY ascorbic acid (vitamin C) [C-500] 500 mg tablet 500 mg PO DAILY cholecalciferol (vitamin D3) [Vitamin D3] 25 mcg (1,000 unit) capsule 25 mcg PO DAILY coenzyme Q10 [CoQ-10] 100 mg capsule 200 mg PO DAILY calcium carbonate [Calcium 600] 600 mg calcium (1,500 mg) tablet 600 mg PO BID Align (B.infantis) 4 mg capsule 4 mg PO DAILY metoprolol succinate 25 mg tablet extended release 24 hr 25 mg PO DAILY atorvastatin 20 mg tablet 10 mg PO QHS aspirin-dipyridamole 25-200 mg capsule, ER multiphase 12 hr 1 cap PO BID Referrals / Follow Up: physical,therapy [Other] - 09/21/24 11:00 am August Mccray MD [Primary Care Provider] - Moises Yi MD [Med Staff - Active Staff] - 10/04/24 1:15 pm Disposition Disposition (needs filled in before D/C Order can be placed): Home, Self Care
[2024-09-19 07:38] VITALS: BP 101/58; PULSE 87; RESP 16; TEMP 36.4; O2SAT 96
[2024-09-19 07:41] LABS: Anion Gap 6 (5-15); BUN 15 mg/dL (7-18); Chloride 107 mmol/L (98-107); Creatinine, Serum 0.58 mg/dL (0.55-1.02); EST Glomerular Filtration Rate 108 mL/min (>60); Est Glom Filt Rate - Afr Amer 130 mL/min (>60); Estimated Creatinine Clearance 50.85 ml/min; Glucose 97 mg/dL (74-106); Potassium 3.7 mmol/L (3.5-5.1); Sodium Level 140 mmol/L (136-145)
[2024-09-19] MEDS: Famotidine 20 MG Tablet PO (07:43)
[2024-09-19] MEDS: Aspirin 81 MG TAB.CHEW PO (07:43)
[2024-09-19] MEDS: Cholecalciferol (VIT D3) 25 MCG TABLET (1,000 UNITS) PO (07:44)
[2024-09-19] MEDS: Calcium (Elemental) 500 MG Tablet PO (07:44)
[2024-09-19] MEDS: Ascorbic Acid 500 MG Tablet PO (07:44)
[2024-09-19] MEDS: Multivitamins,Ther W-Minerals Tablet 1 TABLET PO (07:44)
[2024-09-19] MEDS: Senna/Docusate Sodium 1 Tablet 2 TABLET PO (07:45)
[2024-09-19 08:07] VITALS: O2SAT 95
--- NOTE | 2024-09-19 09:50 | CASEMGMT ---
MELIA GONZALES Assessment: Face to Face with pt for initial transition planning/care coordination assessment. MELIA GONZALES introduced self and role at [facility], pt voices understanding and consents to assessment. Pt is A&O x4 and answers all questions appropriately at this time. MELIA CM into Pt room, pt walking in the room with therapy. Sitting up in chair with ice on. sitting at bedside, pt agreeable to answering questions with present. Care providers, pharmacy, and demographics verified/updated. Strata: 1 Admitting Dx: Anterior L Hip Arthroplast PCP: Wendy Specialists: Kd, Ortho; Mary Beth - ENT; Quintin, Hair [employer] Beauty Salon Manager Preferred Pharmacy: [facility] Insurance: [employer] [facility] Prescription Benefit: yes LNOK: Florentino Living Arrangements: Pt lives with in a 1 level home with 1 step to enter. ADLs: Pt I at baseline with ADLs and IADLs. Transportation: Pt drives self and denies concerns with transportation. DME: Walker, cane, high rise toilet, shower stool HHC/SNF: Denies Hx of Pt states no concerns with going home at time of dc. Pt states no further concerns/needs. Pt would like medications brought to the room. MELIA GONZALES called [facility] pharmacy, they will call pt for payment and deliver medication. Notified Pt. CM to follow. Advised pt to ask CM if any further question/concerns/needs arise, voices understanding. Pt Goal: Home Plan: Home with OP therapy starting on 09/21/24 at [facility]. Mendez CÁRDENAS CM
== END 2024-09-19 11:08 | disposition home or self-care (01) ==
LOC: SDC 10:14 → MS3 10:14
PROVIDERS: Admitting Provider Specialist; PCP Family Medicine; Referring Provider Specialist; Visit Provider Specialist
PROC: (CPT 27284; principal; 2024-09-18 07:05)
DX: M16.0 Bilateral primary osteoarthritis of hip (principal); I10 Essential (primary) hypertension; Q21.12 Patent foramen ovale; E78.00 Pure hypercholesterolemia, unspecified; H91.90 Unspecified hearing loss, unspecified ear; Z79.899 Other long term (current) drug therapy
CPT/HCPCS: 27130; 01214; 36415; 73501; 73502; 76000; 80048; 82040; 82962; 83735; 85025; 85027; 87081; 88307; 88311; 94668; 96365; 96366; 97112; 97162; 97166; 97530; 99221; 99252; C1776; G0378; G0463; J2405; J3475

== ENCOUNTER → 2024-09-26 | Outpatient (CLI) | payer MEDICARE, SELFPAY ==
--- NOTE | 2024-09-26 14:46 | VDLE_ITS ---
Reason For Study: Left leg swelling RIGHT LEFT FV is compressible, spontaneous, phasic, GSV is normal. competent and demonstrates normal CFV is compressible, spontaneous, phasic, augmentation. competent, and demonstrates normal Procedure augmentation. This is a venous duplex using B-mode, color FV is compressible, spontaneous, phasic, flow and spectral Doppler. competent and demonstrates normal Exam performed in department. augmentation. A preliminary report was called and/or faxed POP V is compressible, spontaneous, phasic, to Dr. Yi. competent and demonstrates normal augmentation. T/P Trunk is compressible. PTV is compressible. LT PerV is compressible. VL/Venous Duplex US, Unilateral Interpretation Summary Deep veins of the left lower extremity are patent and compressible segmentally. There is no evidence of left lower extremity deep vein thrombosis. Valvular competence appears intac t within the proximal deep venous system on the left . The left great saphenous vein appears patent a nd compressible segmentally. The right femoral vein is patent and compressible. Ordering Physician: Moises Yi Referring Physician: August Mccray Performed By: Jules Alamo, RVT
== END | disposition home or self-care (01) ==
LOC: CVS 14:43
PROVIDERS: PCP Family Medicine; Referring Provider Specialist; Visit Provider Specialist
DX: R22.42 Localized swelling, mass and lump, left lower limb (principal)
CPT/HCPCS: 93971

== ENCOUNTER → 2025-01-04 | Outpatient (CLI) | payer MEDICARE, SELFPAY ==
[2025-01-04 11:36] LABS: ALB/GLOB Ratio 1.6 RATIO (0.9-2.4); AST(SGOT) 16 U/L (<=31); Alanine Aminotransfer ALT/SGPT 11 U/L (<=34); Alkaline Phosphatase 67 U/L (35-104); Anion Gap 10 (5-15); BUN 17 mg/dL (4-19); Calcium,Total 9.4 mg/dL (7.6-11.0); Carbon Dioxide 26.3 mmol/L (21.0-32.0); Chloride 106 mmol/L (98-108); Cholesterol 138 mg/dL (<=200); Creatinine, Serum 0.73 mg/dL (0.70-1.20); EST Glomerular Filtration Rate 84 (>60); Globulin 2.5 g/dL (2.2-4.2); Glucose 93 mg/dL (70-99); High Density Lipoprotein 43 mg/dL; Low Density Lipoprotein Calc. 71 mg/dL; Potassium 3.9 mmol/L (3.3-5.1); Protein, Total 6.4 g/dL (5.9-8.4); Sodium Level 142 mmol/L (133-145); Total Bilirubin 0.37 mg/dL (0.00-1.30); Triglycerides 122 mg/dL; Very Low Density Lipoprotein 24 mg/dL (5-40); cholesterol:hdl ratio screen 3.24
[2025-01-04 11:42] LABS: PTHIN 27 pg/mL (11-61)
== END | disposition home or self-care (01) ==
LOC: MFPLAB 08:07
PROVIDERS: PCP Family Medicine; Referring Provider Family Medicine; Visit Provider Family Medicine
DX: I10 Essential (primary) hypertension (principal); M81.0 Age-related osteoporosis without current pathological fracture
CPT/HCPCS: 36415; 80053; 80061; 83970

== ENCOUNTER → 2025-01-11 | Outpatient (CLI) | payer MEDICARE, SELFPAY | END | disposition home or self-care (01) | LOC: LABSPEC 08:10 | PROVIDERS: PCP Family Medicine; Referring Provider Family Medicine; Visit Provider Family Medicine | DX: I10 Essential (primary) hypertension (principal); M81.0 Age-related osteoporosis without current pathological fracture | CPT/HCPCS: 81050 ==

== ENCOUNTER → 2025-01-18 | Outpatient (CLI) | payer MEDICARE, SELFPAY ==
[2025-01-18 11:13] LABS: Calcium Urine pH Range 2
[2025-01-18 11:14] LABS: 24HR UR TOTAL VOLUME 1600 ml
[2025-01-18 11:44] LABS: (24 HR) Urine Calcium 299.2 mg/24 HR (42.0-353.0); Urine Calcium (Random) 18.7 mg/dL (Not Estab.)
== END | disposition home or self-care (01) ==
LOC: MFPLAB 08:36 → LABSPEC 08:37
PROVIDERS: PCP Family Medicine; Referring Provider Family Medicine; Visit Provider Family Medicine
DX: I10 Essential (primary) hypertension (principal); M81.0 Age-related osteoporosis without current pathological fracture
CPT/HCPCS: 81050; 82340

== ENCOUNTER → 2025-04-25 | Outpatient (CLI) | payer MEDICARE, SELFPAY ==
[2025-04-25 10:36] LABS: PTHIN 39 pg/mL (11-61)
[2025-04-25 10:49] LABS: AST(SGOT) 17 U/L (<=31); Alanine Aminotransfer ALT/SGPT 14 U/L (<=34); Albumin, Serum 4.0 g/dL (3.4-4.8); Alkaline Phosphatase 64 U/L (35-104); Anion Gap 12 (5-15); BUN 17 mg/dL (4-19); BUN/Creat Ratio 23.2 RATIO (10-20); Calcium,Total 9.5 mg/dL (7.6-11.0); Carbon Dioxide 26.3 mmol/L (21.0-32.0); Chloride 105 mmol/L (98-108); Globulin 2.4 g/dL (2.2-4.2); Glucose 102 mg/dL (70-99); Magnesium 2.2 mg/dL (1.5-2.2); Potassium 3.7 mmol/L (3.3-5.1); Vitamin D,25 Hydroxy 61.8 ng/mL (30-100)
== END | disposition home or self-care (01) ==
LOC: MTLAB 08:11
PROVIDERS: PCP Family Medicine; Referring Provider Internal Medicine Endocrinology, Diabetes & Metabolism; Visit Provider Internal Medicine Endocrinology, Diabetes & Metabolism
DX: M85.89 Other specified disorders of bone density and structure, multiple sites (principal); E04.2 Nontoxic multinodular goiter; E21.5 Disorder of parathyroid gland, unspecified; R82.994 Hypercalciuria; E55.9 Vitamin D deficiency, unspecified; E66.3 Overweight; Z68.25 Body mass index [BMI] 25.0-25.9, adult; Z71.3 Dietary counseling and surveillance
CPT/HCPCS: 36415; 80053; 82306; 83735; 83970; 84443

== ENCOUNTER → 2025-06-11 | Outpatient (CLI) | payer MEDICARE, SELFPAY ==
--- NOTE | 2025-06-11 08:25 | US_ITS ---
PROCEDURE: ABDOMEN LIMITED 06/11/2025 REASON FOR EXAM: HEPATOMEGALY, NOT ELSEWHERE CLASSIFIED TECHNIQUE: Procedure Code: USABDL Modality: US Procedure: ABDOMEN LIMITED COMPARISON: None FINDINGS: Liver: Diffusely echogenic suggesting fatty infiltration. The liver measures 14.1 cm. Gallbladder: No stones, sludge, wall thickening or tenderness. Common bile duct: Normal measuring 7 mm. . Pancreas: Normal Other: Visualized portions of the right kidney demonstrate a 2.2 cm 1.6 cm 0.9 cm right renal cyst. 1 cm x 0.8 cm x 0.6 cm nonobstructive right intrarenal calculus. No right upper quadrant ascites. US/Abdomen Limited IMPRESSION: Fatty infiltration of the liver. Right renal cyst. Nonobstructive right intrarenal calculus. Reading Location: [place] [id number]
== END | disposition home or self-care (01) ==
LOC: US 08:21
PROVIDERS: PCP Family Medicine; Referring Provider Family Medicine; Visit Provider Family Medicine
DX: R16.0 Hepatomegaly, not elsewhere classified (principal)
CPT/HCPCS: 76705

== ENCOUNTER → 2025-07-04 | Outpatient (CLI) | payer MEDICARE, SELFPAY ==
[2025-07-04 10:58] LABS: Anion Gap 11 (5-15); BUN 14 mg/dL (4-19); BUN/Creat Ratio 19.3 RATIO (10-20); Calcium,Total 9.0 mg/dL (7.6-11.0); Carbon Dioxide 24.4 mmol/L (21.0-32.0); Chloride 107 mmol/L (98-108); Glucose 98 mg/dL (70-99); Potassium 4.2 mmol/L (3.3-5.1)
== END | disposition home or self-care (01) ==
LOC: MTLAB 09:03
PROVIDERS: PCP Family Medicine; Referring Provider Physician Assistant; Visit Provider Physician Assistant
DX: M85.89 Other specified disorders of bone density and structure, multiple sites (principal)
CPT/HCPCS: 36415; 80048